=== PATIENT | female | born 1955 | race Caucasian/White ===

== ENCOUNTER 2017-02-18 07:15 | Day surgery (SDC) | payer OTHER ==
[~2017-02-18] VITALS: Ht 165.1 cm; Wt 82.5 kg
[~2017-02-18 07:15] MED LIST: OMEP20TA86 PO; Sodium Chloride LOK Flush 10 mL Syringe IV PRN; fentaNYL-PF 50 mCg/mL 2 mL Inj IVPUSH PRN
[2017-02-18 07:35] VITALS: BP 156/90; PULSE 67; RESP 18; O2SAT 99
[2017-02-18] MEDS: 0.9% Sodium Chloride 1,000 ML IV SCH ×2 (08:07→08:40)
[2017-02-18 08:46] VITALS: BP 137/84; PULSE 71; RESP 16; O2SAT 93
[2017-02-18 09:00] VITALS: BP 125/87; PULSE 77; RESP 16; O2SAT 94
[2017-02-18 09:10] VITALS: BP 136/84; PULSE 66; RESP 16; O2SAT 93
--- NOTE | 2017-02-18 09:52 | ENDO ---
[address] [address] ENDOSCOPY PROCEDURE PATIENT: LILLIAN WHALEN : 1955 MR#: [id number] ADMIT: 02/18/2017 JOB ID: [id number] DATE: 02/18/2017 PREOPERATIVE DIAGNOSIS(ES): 1. Dysphagia. 2. Colorectal cancer screening. POSTOPERATIVE DIAGNOSIS(ES): 1. Normal upper endoscopy. 2. Rectal polyp. 3. Proximal sigmoid colon polyp. 4. Distal sigmoid colon polyp. 5. Transverse colon polyp. 6. Diffuse diverticulosis. OPERATION: 1. Upper endoscopy with biopsy. 2. Colonoscopy into terminal ileum with four cold forceps polypectomies. SURGEON: Vitor Amador MD. INDICATIONS: A 61-year-old female who has solid food dysphagia. She has never had a workup for this and after discussing options with the patient, it was elected to proceed with an upper endoscopy. She has also never had a colonoscopy for colorectal cancer screening and it was elected to accomplish that at the same time. FINDINGS: Her GE junction was at 42 cm from the incisors. There was no evidence of a hiatal hernia. The distal esophageal mucosa was entirely normal. There was no evidence of a stricture, Schatzki ring or a tumor. Retroflexed views of the cardia revealed a normal Hill grade I flap valve. The fundus, body and antrum of the stomach were normal. The pylorus was normal. The duodenum through the second portion of the duodenum was normal. Biopsy of the antrum was obtained for H. pylori. She had a good prep. The scope was advanced into the terminal ileum. She had four small polyps that were identified, one in the transverse colon, one in the proximal sigmoid colon, one in the distal sigmoid colon and one in the rectum. All were small, the largest being in the range of 2-3 mm. All appeared benign. She also had diffuse diverticulosis extending into the proximal transverse colon. Other than the small distal rectal polyp, retroflexed views of the rectum were normal. DESCRIPTION OF PROCEDURE: The procedure and sedation plan was discussed with the patient and nursing staff and a procedural time-out was held. She did a lidocaine gargle. For both procedures, she received 9 mg of Versed and 175 mcg of fentanyl. The upper endoscopy was performed first with the GIF H 180 J video endoscope. This passed into the second portion of the duodenum. Forward and retroflexed views of the cardia were obtained. Biopsies of the antrum were obtained with results as stated above. The patient was repositioned. A digital rectal examination was performed and then the Olympus PCF H 180 AL video colonoscope was passed transanally, advanced into the terminal ileum, withdrawn over 11 minute 50 seconds. The four small polyps were biopsied with cold forceps with minimal bleeding with the results as stated above. There were no apparent complications. IMPRESSION: 1. No obvious explanation for dysphagia. 2. Four small colon polyps, histology pending. PLAN: Esophageal manometry and then return to my office for discussion.
--- NOTE | 2017-02-22 15:51 | PATH ---
SURGICAL PATHOLOGY Attending Physician:Joe Sarah CASE STATUS: Signed Out PATIENT NAME: LILLIAN WHALEN PID: [id number] : 1955 DATE COLLECTED:02/18/2017 15:50 SPECIMEN: 1: Colon, Biopsy 2: Colon, Biopsy 3: Colon, Biopsy 4: Rectum, Biopsy CLINICAL HISTORY: SCREENING/ COLON POLYPS 1. TRANSVERSE COLON POLYP 2. PROXIMAL SIGMOID POLYP 3. DISTAL SIGMOID POLYP 4. RECTAL POLYP FINAL DIAGNOSIS: 1.TRANSVERSE COLON POLYP: HYPERPLASTIC POLYP. 2.PROXIMAL SIGMOID POLYP: HYPERPLASTIC POLYP. 3.DISTAL SIGMOID POLYP: HYPERPLASTIC POLYP. 4.RECTAL POLYP: HYPERPLASTIC POLYP. ICD10 CODE K63.5 K62.1 GROSS DESCRIPTION: The specimen is received in four formalin filled containers labeled with the patient's name. 1). The specimen is sublabeled "transverse colon polyp" and consists of a 0.3 x 0.3 x 0.3 CM portion of tissue which is entirely submitted in cassette 1A. 2). The specimen is sublabeled "proximal sigmoid polyp" and consists of a 0.2 x 0.2 x 0.2 CM portion of tissue which is entirely submitted in cassette 2A. 3). The specimen is sublabeled "distal sigmoid polyp" and consists of a 0.4 x 0.3 x 0.2 CM portion of tissue which is entirely submitted in cassettes 3A. 4). The specimen is sublabeled "rectal polyp" and consists of 2 portions of tissue which aggregate to 0.3 x 0.3 x 0.2 CM. The specimen is entirely submitted in cassette 4A. 02/18/2017 DAC MICRO DESCRIPTION: See diagnosis. ICD-9 CODES: CPT CODES: 1: 95530 2: 63873 3: 98808 4: 54055 Electronically Signed Out Glenny Saeed MD [facility], [place] [address] Technical component performed at [facility], [address], [place], [address]
== END 2017-02-18 23:59 | disposition home or self-care (01) ==
LOC: END 07:15
PROVIDERS: ATTEND Surgery
DX: Z12.11 Encounter for screening for malignant neoplasm of colon (principal); K63.5 Polyp of colon; K62.1 Rectal polyp; R13.10 Dysphagia, unspecified; K21.9 Gastro-esophageal reflux disease without esophagitis; B27.00 Gammaherpesviral mononucleosis without complication; Z87.891 Personal history of nicotine dependence
CPT/HCPCS: 43239; 45380; 99153; G0500; J7030

== ENCOUNTER 2017-04-13 12:40 | Day surgery (SDC) | payer OTHER ==
[~2017-04-13 12:40] MED LIST changes: -Sodium Chloride LOK Flush 10 mL Syringe IV PRN; -fentaNYL-PF 50 mCg/mL 2 mL Inj IVPUSH PRN
[2017-04-13] MEDS ORDERED: Lidocaine Topical 2% 30 mL Jelly ONE (12:44)
== END 2017-04-13 23:59 | disposition home or self-care (01) ==
LOC: END 12:40
PROVIDERS: ATTEND Surgery
DX: K22.0 Achalasia of cardia (principal); K21.9 Gastro-esophageal reflux disease without esophagitis

== ENCOUNTER 2017-05-10 17:09 | Inpatient (IN) | payer OTHER ==
[~2017-05-10] VITALS: Ht 165.1 cm; Wt 65.3 kg
[2017-05-10 17:26] VITALS: BP 125/81; PULSE 71; RESP 16; O2SAT 100
[2017-05-10 17:30] VITALS: BP 128/99; PULSE 57; RESP 11; O2SAT 100
--- NOTE | 2017-05-10 17:53 | ED.REPORT ---
HPI-Abd Pain F 40 and Over Date of Service May 10, 2017 ED Provider: Mau Galeas MD Pt is a 61 y/o female w/ a hx of chronic dysphagia presenting to the ED due to an episode of severe epigastric pain which occurred about 1 hr prior to arrival. The patient has been experiencing chronic episodic nausea and vomiting for months after eating or drinking which she states has not been definitely diagnosed but her surgeon Dr. Parmar believes her symptoms are consistent with achalasia. She has lost 80 lbs over 6 months and has been lightheaded frequently due to this condition. She is scheduled to have esophageal and gastric surgery on 05/14 due to proposed achalasia with Dr. Parmar. Today she awoke from a nap at 16:30 and was walking through her house and experienced severe sharp, burning, non-radiating epigastric pain for 1-2 minutes and then syncopized for about 30-40 seconds. She has experienced epigastric pain in the past but nothing similar to today. At current time, her pain is only quite mild. She has been constipated for 1 week. She denies fever, chills, chest pain , lower extremity edema, SOB. She has no history of other medical problems and doesn't take any medications. Nursing Notes Stated Complaint: PAIN IN STOMACH Chief Complaint: Female Abdominal Pain Nursing Notes Reviewed: Yes ([facility], meds not reconciled) Allergies: Coded Allergies: No Known Allergies (Unverified , 05/10/17) No Active Prescriptions or Reported Meds General Time Seen by MD: 17:49 Chief Complaint Abdominal pain Hx Obtained From: Patient Arrived By: Walk-in Sudden in Onset?: No Onset Occurred: Just prior to arrival Symptom Duration: 1 - 15 minutes Progression since Onset: Rapidly improving Location: : Epigastric Quality: Painful Radiation: : Does not radiate Severity: Current: Mild Severity: Maximum: Severe Recent Healthcare: Recent doctor visit Past Medical History Past Medical History Chronic dysphagia with weight loss, nausea, and vomiting, unclear etiology Colon polyps Denies: Coronary artery disease, Diabetes mellitus, Hypertension Past Surgical History EGD and colonoscopy 01/2017 Smoking History Never Smoker Social History Drug Use: Denies drug use Other Social History: Good social support, Ambulatory Status Independent Review of Systems Constitutional: Denies: Chills, Fever Respiratory: Denies: Non-productive cough, Shortness of breath Cardiovascular: Denies: Chest pain, Dyspnea on exertion GI: Reports: Abdominal pain, Dysphagia, Nausea, Vomiting Complete sys rev & neg: except as marked. Neurologic: Reports: Change LOC, Lightheaded, Syncope, Denies: Focal weakness, Headache, Numbness Physical Exam Vital Signs Vital Signs (First) Date Time Temp Pulse Resp B/P Pulse Ox O2 Delivery O2 Flow Rate FiO2 05/10/17 17:26 36.9 71 16 125/81 100 Room Air Initial VS: Reviewed, Vital signs normal Head / Eyes: Atraumatic, Normocephalic, PERRL Neck: Supple, Full range of motion Skin: Warm, Dry, No cyanosis Neurologic: Alert, Oriented, Nonfocal Psychiatric: Mood/affect normal, Behavior normal, Normal thought content General/Constitutional: Awake, Alert, No acute distress, Cooperative, Not toxic appearing Distress / Hydration: Positive: Dehydration mild, Dehydration moderate Behavior: Positive: Anxious Appearance / Presentation: Positive: Cachectic Respiratory / Chest: Breath sounds NL, Breath sounds = bilat, No rales, No rhonchi, No wheezing, No retractions, No stridor Slightly short of breath Cardiovascular: Heart rate NL, Regular rhythm, Heart sounds NL, No gallop, No murmurs, No rubs, Cap refill not delayed, Peripheral circulation NL, Pulses = bilaterally Abdomen: Atraumatic, Soft, Non-tender, No guarding, No rebound, No distention, No palpable mass Back: Full range of motion, Painless range of motion ENT: Atraumatic, Airway patent Mouth: Positive: Mucous membranes dry Lower Extremity / Pelvis / MS: No swelling, No deformity, Neurologic intact, Vascular intact, No edema Interpretation & Diagnostics Lab Results Interpretation Result Diagram: 05/10/17182905/10/171829 Test 05/10/17 18:30 05/10/17 19:38 White Blood Count 8.4th/mm3 (3.8-10.1) Red Blood Count 5.00mil/mm3 (3.90-5.20) Hemoglobin 14.8g/dL (12.0-15.6) Hematocrit 42.4% (35.0-46.0) Mean Corpuscular Volume 84.8fL (81-100) Mean Corpuscular Hemoglobin 29.6pg (27.0-35.0) Mean Corpuscular Hemoglobin Concent 34.9% (32.0-37.0) Red Cell Distribution Width 14.1% (12.3-15.4) Platelet Count 213bil/L (150-400) Neutrophils (%) (Auto) 62.0% (40-74) Lymphocytes (%) (Auto) 28.4% (14-46) Monocytes (%) (Auto) 8.8% (4-12) Eosinophils (%) (Auto) 0.5% (0-5) Basophils (%) (Auto) 0.2% (0-3) D-Dimer 0.56mg/L FEU (<0.50) Sodium Level 143mEq/L (134-144) Potassium Level 2.9mEq/L (3.5-5.2) Chloride Level 96mEq/L (97-108) Carbon Dioxide Level 23mmol/L (18-29) Blood Urea Nitrogen 32mg/dL (8-27) Creatinine 1.30mg/dL (0.57-1.00) Estimat Glomerular Filtration Rate 59mL/min (>59) Glucose Level 115mg/dL (60-99) Calcium Level 10.8mg/dL (8.5-10.1) Total Bilirubin 1.3mg/dL (0.0-1.2) Aspartate Amino Transf (AST/SGOT) 52U/L (0-50) Alanine Aminotransferase (ALT/SGPT) 66U/L (0-32) Alkaline Phosphatase 43U/L (25-165) Troponin T < 0.010ug/L (0.0-0.011) Total Protein 8.1g/dL (6.4-8.4) Albumin 4.5g/dL (3.4-5.0) Lipase 45U/L (13-60) Lactic Acid Level 1.6mmol/L (0.4-2.0) Lab Results Interpretation: CBC normal CMP moderate hypokalemia, renal insufficiency-I do not have old labs available to me for comparison Pulmonary negative D-dimer age adjustment negative ECG Interpretation ECG Interpretation: Sinus rhythm rate 62 LVH with repolarization No prior EKG for comparison Time: 18:20 Interpreted by: ED physician X-Ray Chest Interpretation Chest Xray Interpretation: IMPRESSION: No acute pulmonary process. Dictated by: Niya Gregorio M.D. on 05/10/2017 at 19:49 Approved by: Niya Gregorio M.D. on 05/10/2017 at 19:50 View: Portable, 1 view Interpretation / Wet Read by: Interpret - Radiologist Re-Eval/Medical Decision Med Decision/Clinical Course This is a 61-year-old female who presents with a chief complaint of syncope, with concern for dehydration, nausea vomiting inability to take by mouth. Patient poor she has had no major medical problems, until recent months she developed increasing dysphagia-and a workup was demonstrated achalasia, for surgery as planned on Wednesday with Dr. Parmar. At 80 pounds in recent months, and continue to have difficulties even with liquids. Today she had a bout of epigastric pain, was standing and then collapsed for about 40 seconds and was briefly unresponsive. She denies chest discomfort, diaphoresis, pleuritic discomfort-she has no prior history of DVT or PE. He is concerned about being severely dehydrated. On exam she is cachectic and fatigue. She has dry mucous membranes. She is not in extremis. She is not tachycardic or hypotensive. She has no overt findings of heart failure. No murmurs are evident, and no clinical evidence of DVT is evident on physical exam. EKG is however notable for left ventricular hypertrophy, with no prior EKG available comparison-this is somewhat concerning given the absence of prior hypertension, or cardiac disease given the syncope. It certainly remains possible to syncope is just secondary to dehydration given his history as well. Her labs are notable for significant hypokalemia Source of Hx: Old records Re-Evaluation/Progress : Time of Eval: 20:46 Re-Evaluation/Progress Note: Pt rechecked. Informed pt of need for admission. Pt understands and agrees with plan for admission. All questions addressed. Consultation : Referral / Consult Name: Danii Jade DO Consulted With: Hospitalist Call Returned at: 20:46 Heavy Equipment Supervisor: Will see patient, Agrees with eval, Agrees with plan, Accepts admit Counseled Regarding: Diagnosis, Lab results, Need for admission Discharge & Departure Primary Impression: Syncope Syncope type: unspecified Qualified Code: R55 - Syncope and collapse Additional Impressions: Achalasia Dehydration Epigastric abdominal pain Hypokalemia LVH (left ventricular hypertrophy) Disposition: ADMITTED TO HOSPITAL Discharge Condition All VS Reviewed: Yes Condition: Stable Referrals: Krissy Harding (PCP) Susan Parmar MD Attestation Portions of this note were transcribed by Isael Kelly. I, Dr. Galeas, personally performed the history, physical exam and medical decision-making; I reviewed and confirmed the accuracy of the information in the transcribed note. Signed by Last Perdue, 05/10/17 - [id number] copies to: Krissy Harding; Susan Parmar MD, Matthew F MD May 10, 2017 17:53 ISAEL KELLY May 10, 2017 18:04
[2017-05-10] MEDS ORDERED: 0.9% Sodium Chloride 1,000 ML IV ONE ×2 (18:05)
[2017-05-10 18:37] LABS: BASOPHILS % (AUTO) 0.2 % (0-3); EOSINOPHILS % (AUTO) 0.5 % (0-5); MONOCYTES % (AUTO) 8.8 % (4-12); Mean Corpuscular Hemoglobin 29.6 pg (27.0-35.0); Mean Corpuscular Volume 84.8 fL (81-100); Platelet Count 213 bil/L (150-400)
[2017-05-10 19:00] LABS: TROPONIN T < 0.010 ug/L (0.0-0.011)
[2017-05-10] MEDS ORDERED: Promethazine Inj 25 MG in Dextrose 5%-Pha MIX 50 ML IV ONE (19:15)
[2017-05-10 19:29] LABS: Lipase 45 U/L (13-60)
[2017-05-10] MEDS ORDERED: Potassium Chloride Inj 20 MEQ in Dextrose 5% 250 ML IV ONE (19:40)
--- NOTE | 2017-05-10 19:52 | DRSVH ---
PROCEDURE: X-RAY CHEST ONE VIEW, PORTABLE ([id number]) INDICATIONS: syncope, SOB TECHNIQUE: One view of the chest was acquired. COMPARISON: None. FINDINGS: Surgical changes and devices: None. Lungs and pleura: No pleural effusions or pneumothorax. Lungs are clear. Mediastinum: Mediastinal contours appear normal. Heart size is normal. Bones and chest wall: No suspicious bony lesions. Overlying soft tissues appear unremarkable. IMPRESSION: No acute pulmonary process. Dictated by: Niya Gregorio M.D. on 05/10/2017 at 19:49 Approved by: Niya Gregorio M.D. on 05/10/2017 at 19:50
--- NOTE | 2017-05-10 21:02 | PCM.HPMED ---
Subjective Date of Service May 10, 2017 Primary Provider: Admitting Physician: Primary Care Physician: Krissy Harding Attending Physician: Admit Status: From the Emergency Department Chief Complaint: Abdominal pain and syncope History of Present Illness: Kim Pineda is a 61-year-old woman history of chronic dysphasia recently diagnosed by Dr. Parmar as achalasia who presents with severe epigastric pain and syncopal episode. The patient has been undergoing workup over the last 3-4 months for chronic nausea and vomiting that began back in July 2016. She weighed 225 pounds prior to developing this chronic nausea and vomiting and now currently weighs 144 pounds. She has undergone workup including EGD with biopsy , barium swallow, and esophageal manometry which all point to type II achalasia. Dr. Parmar plans to take the patient to surgery on 05/14 for laparoscopic Heller myotomy. The patient has been attempting to manage until this procedure takes place. She has been drinking and eating as able but notes that she vomits most of this up. Vomiting as much as 30 times a day. Today the patient states that around 1700 she had an episode of severe epigastric pain that lasted a few minutes. Epigastric pain did not radiate and was described as a sharp intense pain During this episode she subsequently felt lightheaded and began to let her self to the ground when she passed out. Her states that she fell to the ground and not sustain any significant injury to her head. She was unconscious and unresponsive for approximately 40 seconds. When she regained consciousness she was alert and oriented. Her then drove her to the ED to be evaluated. Currently she denies any ongoing epigastric pain or discomfort. She does know she has not had a bowel movement in over a week but has not had significant oral intake. She denies feeling constipated. She denies fever, chills, chest pain, lower extremity edema. She does note some shortness of breath and dizziness that has progressively worsened over the last 2 weeks. She has attributed this to her decreased oral intake due to the achalasia. On presentation to the ED vitals were temperature 36.9, pulse 71, respiratory rate 16, blood pressure 125/81, saturating 100% on room air. Pertinent labs included a potassium of 2.9, BUN and creatinine of 32 and 1.30, AST 52, ALT 66, alkaline phosphatase 43, lipase 45. Review of Systems: Comprehensive review of systems was conducted with the patient and found to be negative except as noted above in HPI. Allergies Coded Allergies: No Known Allergies (Unverified , 05/10/17) Home Medications None PMH Chronic dysphagia recently diagnosed as achalasia by Dr. 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 External ears without defect. Pupils equal, round, and reactive to light and accommodation. Anicteric sclerae, moist conjunctivae, and no lid lag. Oropharynx free of erythema and cobble stoning with dry mucosa and lips. Neck: Supple with full range of motion. No jugular venous distension. No bruits. No lymphadenopathy or thyromegaly. Cardiovascular: Regular rate and rhythm with no murmurs, rubs, or gallops appreciated Pulmonary: Clear to auscultation bilaterally with no crackles, wheezes, or rhonchi. Normal respiratory effort with no use of accessory muscles. Abdomen: Bowel tones present. Soft, nontender, nondistended. No hepatosplenomegaly or masses appreciated. Extremities: No clubbing, cyanosis, edema, or lymphadenopathy appreciated. Skin: Skin tenting present, decreased turgor, normal temperature; no rash, ulcers, or subcutaneous nodules appreciated. Neurological: Cranial nerves grossly intact. Normal muscle strength, tone, and bulk. Reflexes, coordination, and sensory function within normal limits. No known gait impairment. Psychiatric: Normal mood and affect. Alert and oriented to person, place, and time. Lab and Diagnostics Result Diagram: 05/10/17182905/10/171829 X-Rays, CTs and MRIs X-RAY CHEST ONE VIEW, PORTABLE ([id number]) IMPRESSION: No acute pulmonary process. Dictated by: Niya Gregorio M.D. on 05/10/2017 at 19:49 Approved by: Niya Gregorio M.D. on 05/10/2017 at 19:50 X-RAY BARIUM SWALLOW ESOPHAGUS ([id number]) IMPRESSION: Abnormal appearance of the distal esophagus with sequela of radiographic findings suggesting achalasia. Endoscopy is recommended. Dictated by: Sina Peters RRA Interpreted: Niya Gregorio MD on 04/29/2017 at 15: 20 Approved by: Niya Gregorio M.D. on 04/29/2017 at 18:52 12-lead ECG Sinus rhythm rate 62 LVH with repolarization No prior EKG for comparison Additional Diagnostics: ENDOSCOPY PROCEDURE DATE: 02/18/2017 PREOPERATIVE DIAGNOSIS(ES): 1. Dysphagia. 2. Colorectal cancer screening. POSTOPERATIVE DIAGNOSIS(ES): 1. Normal upper endoscopy. 2. Rectal polyp. 3. Proximal sigmoid colon polyp. 4. Distal sigmoid colon polyp. 5. Transverse colon polyp. 6. Diffuse diverticulosis. OPERATION: 1. Upper endoscopy with biopsy. 2. Colonoscopy into terminal ileum with four cold forceps polypectomies. IMPRESSION: 1. No obvious explanation for dysphagia. 2. Four small colon polyps, histology pending. PLAN: Esophageal manometry and then return to my office for discussion. Vitor Amador MD 02/18/17 0880 <Electronically signed by Vitor Amador MD> 02/20/17 1321 Assessment & Plan Kim Pineda is a 61-year-old woman history of chronic dysphasia recently diagnosed by Dr. Parmar as achalasia who presents with severe epigastric pain and syncopal episode. Syncope, present on admission, active. Etiology likely secondary to dehydration and poor oral intake. Although cannot rule out cardiac involvement as EKG showed some left ventricular hypertrophy with no prior EKG to compare to. - IV fluids received in the ED and continued at 150 mL per hour. - Orthostatic blood pressure pending. - Echocardiogram ordered for the morning. - Monitor on telemetry overnight. - Chest x-ray, CBC, and troponins negative for abnormalities. Acute kidney injury, present on admission, active. Etiology likely secondary to dehydration and poor oral intake. - Elevated BUN and creatinine on admission compared to labs drawn on 02/01/17 that showed a creatinine of 0.68 and BUN of 12. - IV fluids as above. - Urinalysis pending. - Repeat CMP in the morning. - If labs are not improved in the morning consider renal ultrasound. Hypokalemia, present on admission, active. - Potassium 2.9 on admission. - Placement started in the ED. - Recheck potassium in the morning. - EKG without changes associated with hypokalemia. Achalasia Type II, present on admission, active. - Heller myotomy scheduled for 05/[address] Parmar. - Dr. Parmar should be contacted in the morning so she is made aware of the patient's current situation. Elevated liver enzymes, present on admission, active. Unclear etiology and chronicity. Patient denies history of hepatitis, HIV, or IV drug use. May be secondary to achalasia and nine-month history of nausea and vomiting. - As they are only mildly elevated will repeat CMP in the morning after IV fluid hydration. - Further workup to be completed likely after Heller myotomy if values remain elevated. PRN Medications - Acetaminophen as needed for mild pain/fever/headache - Bowel regimen as needed - Antiemetic as needed Patient is admitted under observation status with expected length of stay less than 2 midnights due to severity of presenting symptoms, risk of adverse event, and complexity of treatment plan. Pain Evaluation: Adequate Pain Control GI Prophylaxis: Not indicated VTE Prophylaxis: Sub-Q Heparin (Unfractionated), SCDs Resuscitation Status: CPR: Attempt Resuscitation Attending Statement The patient was seen and examined together with house staff on 05/10/2017 and I agree with the history, exam and plan as outlined in the note above. ROSA HER DO May 10, 2017 21:02 Danii Jade DO May 11, 2017 05:46
[2017-05-10] MEDS: 0.9% Sodium Chloride 1,000 ML IV SCH (21:49)
[2017-05-10] MEDS ORDERED: Alum-Mag Hydrox-Simeth 30 mL Suspension PO PRN (21:50)
[2017-05-10] MEDS ORDERED: Ondansetron 2 mg/mL 2 mL Inj IVPUSH PRN (21:50)
[2017-05-10] MEDS ORDERED: Polyethylene Glycol (PEG) 17 Gm Powder PO PRN (21:50)
[2017-05-10 21:54] VITALS: BP 127/99; PULSE 59; RESP 19; O2SAT 98
[2017-05-10 22:00] VITALS: BP_SYST 122; BP_SYST 127; BP_DIAS 76; BP_DIAS 99; PULSE 52; PULSE 59; RESP 18; RESP 19; O2SAT 98; O2SAT 99
[2017-05-10 22:08] VITALS: PULSE 66
[2017-05-10 22:11] LABS: Magnesium 2.3 mg/dL (1.6-2.6)
[2017-05-10 22:16] LABS: APPEARANCE,URINE CLOUDY (CLEAR,HAZY); COLOR,URINE DARK YELLOW (YELLOW); OCCULT BLOOD,URINE NEGATIVE (NEGATIVE); PH,URINE 5.5 (5.0-8.0)
[2017-05-11] VITALS (8 sets, daily range): BP systolic 103–136; BP diastolic 58–76; PULSE 46–63; RESP 16–20; O2SAT 97–100
[2017-05-11] MEDS: Heparin 5,000 Unit/mL Inj SUBQ SCH ×3 (00:30→17:49)
--- NOTE | 2017-05-11 03:35 | NUR ---
Admission Pt arrived from ER to [facility] [id number] approz at 2200. Pt denies pain N/V. Admission assessment and screening completed. Belongings waiver signed. POC discussed and reviewed with pt and spouse. They verbalized understanding.
[2017-05-11 06:42] LABS: Mean Corpuscular Hemoglobin 28.8 pg (27.0-35.0); Mean Corpuscular Volume 87.1 fL (81-100)
[2017-05-11] MEDS ORDERED: Pantoprazole 20 mg ER24 Tablet PO SCH (07:30)
[2017-05-11] MEDS: 0.9% Sodium Chloride 1,000 ML IV SCH (10:25)
--- NOTE | 2017-05-11 11:31 | NUR ---
Social Work-multidisciplinary rounds: Per MD in morning rounds, pt likely to be here 1-2 days. Per RN notes, pt has been up in her room. SW to complete assessment today. DANIELLE Hurst
[2017-05-11] MEDS ORDERED: Potassium Chloride Inj 20 MEQ in Dextrose 5% 250 ML IV ONE (13:55)
[2017-05-11] MEDS: D5 0.45% NaCl + KCl 20 mEq/L 1,000 ML IV SCH (14:41)
[2017-05-11] MEDS ORDERED: Nitrofurantoin Monohyd-Macrocryst 100 mg Capsule PO SCH (15:30)
--- NOTE | 2017-05-11 15:59 | NUR ---
Social Work-attempted assessment: SW attempted to see pt today ,but RN in room. SW to follow up with pt tomorrow to complete assessment. SW will continue to follow. DANIELLE Hurst
--- NOTE | 2017-05-11 16:24 | DRSVH ---
PROCEDURE: US BILATERAL DUPLEX DOPPLER IMAGING OF THE CAROTIDS ([id number]) INDICATIONS: syncope TECHNIQUE: Color and pulse Doppler interrogation was performed of both carotid systems, with image documentation and velocity measurements. COMPARISON: None. FINDINGS: All stenosis calculations are based on NASCET criteria. Right side: Brachial blood pressure: 126/66 mm Hg. Common Carotid Artery(Distal) PSV: 123.40 cm/s Internal Carotid Artery PSV- Proximal: Not obtained Mid-lon.30 cm/s Distal: 99.40 cm/s EDV - Proximal: Not obtained Mid-lon.90 cm/s Distal: 30.20 cm/s External Carotid Artery(Proximal) PSV: 116.50 cm/s ICA/CCA PSV ratio: 0.81 Strong scale imaging description: Mild intimal thickening at the carotid bulb. Percent internal carotid artery stenosis: Less than 50% stenosis. Vertebral artery: Flow direction is antegrade. Left side: Brachial blood pressure: 124/68 mm Hg. Common Carotid Artery(Distal) PSV: 105.50 cm/s Internal Carotid Artery PSV - Proximal: 79 cm/s Mid-lon cm/s Distal: 90.30 cm/s, 106.10 cm/s EDV - Proximal: 13.60 cm/s Mid-lon.10 cm/s Distal: 20.80 cm/s, 12.30 cm/s External Carotid Artery(Proximal) PSV: 94.80 cm/s ICA/CCA PSV ratio: 1.01 Strong scale imaging description: Mild intimal thickening at the carotid bulb. Percent internal carotid artery stenosis: Less than 50% stenosis. Vertebral artery: Flow direction is antegrade. IMPRESSION: Less than 50% stenosis of the bilateral internal carotid arteries. Dictated by: Aleida Ramirez M.D. on 05/11/2017 at 16:21 Approved by: Aleida Ramirez M.D. on 05/11/2017 at 16:23
--- NOTE | 2017-05-11 16:26 | DRSVH ---
PROCEDURE: US ABDOMEN INDICATIONS: elevated LFT TECHNIQUE: Real-time scanning was performed of the abdominal and retroperitoneal organs, with image documentatio n. COMPARISON: None. FINDINGS: Liver length: 14.86 cm Gallbladder Wall Thickness: 1.70 mm CHD: 2 mm CBD: 6.10 mm Spleen length: 11.02 cm Right kidney length: 12.22 cm Left kidney length: 11.4 cm Aorta(Proximal): 2.14 cm Aorta(Mid): 1.95 cm Aorta(Distal): 1.70 cm RCIA: 1.01 cm LCIA: 8.50 mm Liver: The liver is 15 cm in length and demonstrates a coarse echotexture. Gallbladder: Echogenic, dependent sludge is present within the gallbladder fundus. No pericholecystic fluid or sonographic Lowe sign. Biliary ducts: Intrahepatic bile ducts are non-dilated. Extrahepatic bile duct caliber is normal. Normal is 6-7 mm or less in diameter, or 10 mm or less post-cholecystectomy. Pancreas: Visualized portions of the pancreas are sonographically normal. The the tail the pancreas is not well-visualized. Spleen: Spleen is normal in size and homogeneous in echotexture. Kidneys: Kidneys are normal in size and echotexture. No hydronephrosis or nephrolithiasis. No alverto d masses. Aorta: Visualized aorta is normal in caliber at less than 3 cm. Iliacs: Proximal common iliac arteries are normal in caliber at less than 2.5 cm. IVC: Intrahepatic inferior vena cava is patent. Miscellaneous: No free abdominal fluid. IMPRESSION: 1. Gallbladder sludge without findings to suggest acute cholecystitis or choledocholithiasis. 2. Probable hepatic steatosis although other sources of hepatocellular dysfunction could be considere d in the differential. Dictated by: Aleida Ramirez M.D. on 05/11/2017 at 16:23 Approved by: Aleida Ramirez M.D. on 05/11/2017 at 16:24
--- NOTE | 2017-05-11 17:18 | DRSVH ---
[facility] [address] [place] [address] Echocardiogram Report Name: LILLIAN WHALEN MStudy Date: 05/11/2017 Height: 65 in Hospital Exam Location: [facility] Weight: 147 lb Gender: Female BSA: 1.7 m2 : 1955 Age: 61 yrs BP: 113/71 mmHg Reason For Study: Syncope Ordering Physician: Performed By: Lupe Muhammad Interpretation Summary The ejection fraction is estimated to be 60-65%. The right ventricle is normal in size, thickness and function. There is no significant valvular heart disease. Procedure: A two-dimensional transthoracic echocardiogram with color flow and Doppler was performed. The study quality was technically adequate. There is no prior echocardiogram noted for this patient. The patient was in normal sinus rhythm during the exam. Left Ventricle: The left ventricle is normal in size, wall thickness, and systolic function without any focal wall motion abnormalities. The ejection fraction is estimated to be 60-65%. Assessment of diastolic parameters indicates normal left ventricular diastolic function and normal filling pressures. Right Ventricle: The right ventricle is normal in size, thickness and function. Atria: The left atrium is moderately dilated. Right atrial size is normal. The interatrial septum is intact with no evidence for an atrial septal defect. Mitral Valve: The mitral valve is normal. There is no mitral regurgitation noted. Aortic Valve: The aortic valve is trileaflet. The aortic valve opens well. No aortic regurgitation is present. Tricuspid Valve: The tricuspid valve is normal in structure and function. There is a trace or physiologic amount of tricuspid regurgitation. The right ventricular systolic pressure is estimated at 26 mmHg assuming a right atrial pressure of 3 mm Hg. Pulmonic Valve: The pulmonic valve is normal in structure and function. There is a trace or physiologic amount of pulmonic regurgitation. Great Vessels: The aortic root is normal size. The dimensions of the ascending aorta are normal. The IVC is dilated (diameter is greater than 2.1 cm) yet it collapses greater than 50% with a sniff. This suggests a right atrial pressure of 8 mm Hg. Pericardium/ Pleura There is no pericardial effusion. There is no pleural effusion. MMode/2D Measurements & Calculations LVIDd: 5.3 cm LA dimension: 3.6 cm RA long axis Ao root diam LVIDs: 3.0 cm FS: 43.2 % LA A2 area: 25.3 cm RA area Aortic Jxn: 2.2 cm IVSd: 0.88 cm LA A4 area: 23.5 cm asc Aorta Diam LVPWd: 0.88 cm LA length (vol) : 16.2 cm RA vol Ao Arch Diam (Prox LA vol: 84.5 ml : 47.5 ml Trans): 2.3 cm LA vol index RA : 27.4 mm/ RVDd major IVC diam: 2.4 cm : 5.4 cm LV jurado. diameter/BSA LV sys. diameter/BSA RVD1 (basal) RVD2 (mid): 2.8 cm (cm/m^2): 3.0 (cm/m^2): 1.7 Doppler Measurements & Calculations Ao V2 max MV E max juanjo MV E/A: 1.1 TR max juanjo : 227.6 cm/sec : 119.2 cm/sec Med Peak E' Juanjo : 238.3 cm/sec Ao max PG MV A max juanjo TR max PG : 20.7 mmHg : 104.4 cm/sec E/E' med: 18.6 : 22.7 mmHg Ao mean PG MV P1/2t: 72.5 msec Lat Peak E' Juanjo PA V2 max : 93.2 cm/sec LVOT Max Juanjo E/E' lat: 14.7 PA mean PG : 119.3 cm/sec E/e' average: 16.6 sev ratio Pulm A Revs Dur PA Accel Time : 0.20 sec MV dec time MV P1/2t max juanjo Ao V2 mean LV V1 max PG : 0.24 sec : 137.0 cm/sec MVA(P1/2t): 3.0 cm2 Ao V2 VTI: 50.9 cm LV V1 VTI : 26.1 cm PA V2 mean : 70.0 cm/sec Electronically signed by: Cb Delcid on Reading Physician:05/11/2017 05:17 PM
--- NOTE | 2017-05-11 18:23 | NUR ---
Vomiting Pt having repeated vomiting during shift. Amounts monitored for output. Emesis was undigested food, with minimal/no bile present, not very odorous. Attempted to premedicate for Nausea with IV Zofran. Pt did report that nausea was reduced but continued to vomit. Did not continue with administration of Zofran d/t Bradycardia. Pt reports increased nausea with some food types. Assisting nausea/vomiting by food choices.
--- NOTE | 2017-05-11 18:34 | NUR ---
HR Tele reported pt HR SBrady as low as 45 BPM. Pt was asymptomatic but vomiting. Denies any lightheadedness, confusion, or weakness. informed. Later in shift around 1515, Tele reported pt having a 2.5 sec pause in Heart rate, then HR returned to SR 60. informed and in to evaluate strip. Continuing to monitor.
[2017-05-11] MEDS ORDERED: Potassium Chloride 20 mEq/15 mL 15mL Oral Soln PO SCH (18:40)
[2017-05-11] MEDS ORDERED: Potassium Chloride Inj 30 MEQ in Dextrose 5% 500 ML IV ONE ×3 (18:40→23:00)
--- NOTE | 2017-05-11 19:55 | PCM.PNSURG ---
Subjective Visit Information: Reason for Visit Syncope, Hypokalemia, Dehydration Surgery/Surgery Date Post-Op Day # Date of Admission: May 10, 2017 at 21:30 Hospital Day # Subjective: 61yof with known achalasia admitted after a syncopal event with multiple laboratory abnormalities including hypokalemia, hypochloremia, mild elevation in LFTs. She has had many episodes of vomiting (she says 30/day) for quite some time due to achalasia. Workup thus far reveals <50% stenosis of carotids, biliary sludge without sign of cholecystitis, essentially normal echocardiogram. Objective Vital Sign- Last 8 Hours Date Time Temp Pulse Resp B/P Pulse Ox O2 Delivery O2 Flow Rate FiO2 05/11/17 17:00 36.8 54 18 119/76 98 Room Air 05/11/17 13:10 36.6 49 18 136/69 100 Room Air Intake and Output- Last 8 Hour 05/11/17 Cumulative From/Thru 07:00 05/10/17 17:26 - 05/11/17 06:08 Intake Total 75 ml 1075 ml Output Total 0 ml 0 ml Balance 75 ml 1075 ml Intake Oral 75 ml 75 ml IV Total 1000 ml Output Urine Total 0 ml 0 ml General: Alert, Oriented X3, Cooperative, No Acute Distress Abdomen: Soft, Non-tender, Non-distended Result Diagram: 05/11/17 0545 05/11/17 1801 Assessment & Plan Impression 61yof with achalasia scheduled for Heller myotomy with EGD on Monday 05/14. Problems: Plan -Her electrolyte abnormalities are consistent with dehydration secondary to dysphagia from achalasia. Agree with resuscitation and repletion. -Appreciate cardiopulmonary workup by the primary team. -I will plan on proceeding with surgery on Wednesday morning, whether she remains here as an inpatient or is discharged. There may be some benefit to her staying as an inpatient to prevent this episode from recurring on Wednesday night or prior to surgery, which could delay the operation if she has severly abnormal electrolytes and ultimately the surgical solution to the underlying problem. -She should follow up with me as an outpatient regarding biliary sludge in the setting of a mild increase in LFTs. 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 I do not plan to both under the same anesthetic on Wednesday. VTE Prophylaxis: Sub-Q Heparin (Unfractionated), SCDs Resuscitation Status: CPR: Attempt Resuscitation Susan Parmar MD May 11, 2017 19:55
[2017-05-11] MEDS: Famotidine Inj 20 MG in IV Premix 1 EACH IV SCH (20:48)
--- NOTE | 2017-05-11 22:27 | NUR ---
Care Report given and care transferred to Cristel Casarez RN.
--- NOTE | 2017-05-11 23:59 | PCM.PNMED ---
Subjective Date of Service May 11, 2017 Subjective Patient is alert and oriented. She states she had a large bowel movement last night at 8 PM after being constipated for a long time. She is taking by mouth intake but vomiting number of times. says this is her norm at home. She states that she was very active yesterday her to meet up with friends, got very thirsty and drank a lot of pop, and then rested some before experiencing the severe achalasia sensation, which came with pain sensation . Became syncopal for 40 seconds. She had some dizziness, lightheadedness and shakiness yesterday but states she feels fine today. Overnight her potassium levels did not really adjust in spite of repletion. Bradycardia in mid 40's reported over tele. Exam Vital Signs Vital Sign - Last Date Time Temp Pulse Resp B/P Pulse Ox O2 Delivery O2 Flow Rate FiO2 05/11/17 13:10 36.6 49 18 136/69 100 Room Air Intake and Output 05/10/17 05/10/17 05/11/17 Cumulative From/Thru 15:00 23:00 07:00 05/10/17 17:26 - 05/11/17 06:08 Intake Total 1000 ml 75 ml 1075 ml Output Total 0 ml 0 ml Balance 1000 ml 75 ml 1075 ml Intake Oral 75 ml 75 ml IV Total 1000 ml 1000 ml Output Urine Total 0 ml 0 ml Exam Gen.: No acute distress, laying in bed watching TV with HEENT: Normocephalic, atraumatic Heart: Bradycardic regular rhythm no S3-S4 murmurs lungs: Clear to auscultation no crackles or wheezes Abdomen soft nontender, flat, normal bowel sounds Extremities: Negative for edema good range of motion Psych negative for agitation and anxiety Neuro no focal deficits IVs and Medications IV Fluids She is currently on D5 half-normal saline with at 20 a.m. acute potassium running at 80 mL/h Medications Reviewed: Medications were reviewed in detail Medications Discontinued Pantoprazole, added famotidine IV 20 mg twice a day Lab and Diagnostics Result Diagram: 05/11/1754405/11/17544 X-Rays, CTs and MRIs X-RAY CHEST ONE VIEW, PORTABLE ([id number]) IMPRESSION: No acute pulmonary process. Dictated by: Niya Gregorio M.D. on 05/10/2017 at 19:49 Approved by: Niya Gregorio M.D. on 05/10/2017 at 19:50 X-RAY BARIUM SWALLOW ESOPHAGUS ([id number]) IMPRESSION: Abnormal appearance of the distal esophagus with sequela of radiographic findings suggesting achalasia. Endoscopy is recommended. Dictated by: Sina Peters RRA Interpreted: Niya Gregorio MD on 04/29/2017 at 15: 20 Approved by: Niya Gregorio M.D. on 04/29/2017 at 18:52 12-lead ECG Sinus rhythm rate 62 LVH with repolarization No prior EKG for comparison Additional Diagnostics ENDOSCOPY PROCEDURE DATE: 02/18/2017 PREOPERATIVE DIAGNOSIS(ES): 1. Dysphagia. 2. Colorectal cancer screening. POSTOPERATIVE DIAGNOSIS(ES): 1. Normal upper endoscopy. 2. Rectal polyp. 3. Proximal sigmoid colon polyp. 4. Distal sigmoid colon polyp. 5. Transverse colon polyp. 6. Diffuse diverticulosis. OPERATION: 1. Upper endoscopy with biopsy. 2. Colonoscopy into terminal ileum with four cold forceps polypectomies. IMPRESSION: 1. No obvious explanation for dysphagia. 2. Four small colon polyps, histology pending. PLAN: Esophageal manometry and then return to my office for discussion. Vitor Amador MD 02/18/17 6415 <Electronically signed by Vitor Amador MD> 02/20/17 1329 Assessment & Plan Kim Pineda is a 61-year-old woman history of chronic dysphasia recently diagnosed by Dr. Parmar as achalasia who presents with severe epigastric pain and syncopal episode. Syncope, present on admission, active. Etiology likely secondary to dehydration and poor oral intake. Although cannot rule out cardiac involvement as EKG showed some left ventricular hypertrophy with no prior EKG to compare to. - IV fluids changed to date for D5 half-normal saline with 20 and acute potassium running at 80 mL/h - Orthostatic blood pressure : Not done 05/11. Will f/u with staff - Echocardiogram, ultrasound carotids were ordered for the morning.: Carotid scan showed < 50% stenosis -- Echo showed "The ejection fraction is estimated to be 60-65%. The right ventricle is normal in size, thickness and function.There is no significant valvular heart disease.'-- essentially normal study - Monitor on telemetry overnight., Normal sinus rhythm, bradycardia this a.m. and 40s. Patient is completely asymptomatic - Chest x-ray, CBC, and troponins negative for abnormalities. --Bradycardia 05/11 a.m. echo is still pending, EKG is ordered: There have been EKG changes, discussed case with cardiology geospatial applications developer Dr. Phillips, who says that 2.5 sec pause is not of concern, it will have to be > 3 sec pause for one to be concerned. Acute kidney injury, present on admission, resolved Etiology likely secondary to dehydration and poor oral intake. - Elevated BUN and creatinine on admission compared to labs drawn on 02/01/17 that showed a creatinine of 0.68 and BUN of 12. - IV fluids as above. - UA showed some concern for infection, cultures are still pending due to poor growth, cont to follow Hypokalemia, present on admission, active. - Potassium 2.9-->2.8-->2.9 very slow to adjust - She was given a total of 50 meq IV potassium, 20 meq PO oral solution, plus the IVF w/potassium. F/U lab at 10 PM. --Night physician was given a signout. -- Consulted Dr. Clifford as she has been very refractory, who recommends continuing the repletion through the night with both IV, PO, f/u K, Mag in the AM. Agrees with IV fluids. We appreciate the recommendations. they will see the pt in the AM Achalasia Type II, present on admission, active. - Heller myotomy scheduled for 05/[address] Parmar. - Dr. Parmar should be contacted in the morning so she is made aware of the patient's current situation. -- Discussed case with Dr. Parmar, she will see the patient. She is requesting an ultrasound of the abdomen, this has been ordered and showed biliary sludge. She does not plan on cholecystectomy at this point. Elevated liver enzymes, present on admission, active. Unclear etiology and chronicity. Patient denies history of hepatitis, HIV, or IV drug use. May be secondary to achalasia and nine-month history of nausea and vomiting. - As they are only mildly elevated will repeat CMP in the morning after IV fluid hydration. - Ultrasound of abdomen is ordered per Dr. Parmar's request though liver function tests seen to be normal normalizing except for the ALT --No active plans for cholecystectomy per Dr. Parmar PRN Medications - Acetaminophen as needed for mild pain/fever/headache - Bowel regimen as needed - Antiemetic as needed Patient is admitted under observation status with expected length of stay less than 2 midnights due to severity of presenting symptoms, risk of adverse event, and complexity of treatment plan. GI Prophylaxis: Not indicated VTE Prophylaxis: Sub-Q Heparin (Unfractionated), SCDs Resuscitation Status: CPR: Attempt Resuscitation Time spent 25 minutes Cathy Bailey DO May 11, 2017 14:36
[2017-05-12] VITALS (7 sets, daily range): BP systolic 96–130; BP diastolic 58–75; PULSE 39–62; RESP 18–24; O2SAT 97–100
[2017-05-12] MEDS: Heparin 5,000 Unit/mL Inj SUBQ SCH ×3 (00:30→16:30)
[2017-05-12] MEDS: D5 0.45% NaCl + KCl 20 mEq/L 1,000 ML IV SCH ×2 (03:24→17:33)
--- NOTE | 2017-05-12 06:19 | NUR ---
Shift Note Assumed pt care at 2330, pt a/o able to make needs known,received K rider edgard, continues with IVF D5 0.45%NS with 20K, pending K check with am labs, pt on tele at 0525 HR down to 39 non sustained, reported by vehicle monitor technician, pt asymptomatic, no c/o pain/discomfort,call light in reach at all times.
[2017-05-12 07:37] LABS: Magnesium 1.9 mg/dL (1.6-2.6)
[2017-05-12] MEDS: Famotidine Inj 20 MG in IV Premix 1 EACH IV SCH ×2 (09:24→20:55)
--- NOTE | 2017-05-12 10:31 | NUR ---
HR Called just recd from tele re pts HR. several sec dip into 30s. pt checked, states to be asymptomatic. notified. Addendum: 05/12/17 at 1646 by MERNA RAMOS RN Cardio PA in to see pt. Reassured that most like vaso-vagal reaction d/t continuos vomiting and electrolyte deficiency. Pt states to understand need to stay another night.
--- NOTE | 2017-05-12 10:55 | NUR ---
Social Work: Initial Assessment Data: Pt is a 61 y/o female admitted for syncope, hypokalemia, dehydration. Pt's PCP is Dr Harding, pt's insurance is [employer]. EMR reviewed, readmit score is 0, low. UPSTAIRS MAID met with pt and spouse at bedside, role explained. Pt states she lives on [address] in a single story home with her where she uses no DME. Pt drives, has no hx of HH or SNF, no LTC or VA benefits, and is not a caregiver. Pt states she has been up and independent in the room and declines any needs at this time. No d/c planning needs identified at this time. UPSTAIRS MAID will continue to follow if needs arise. Assessment: Pt who is independent at baseline. Plan: Pt will d/c home via POV with spouse when medically stable. No d/c planning needs identified at this time. UPSTAIRS MAID will continue to follow if needs arise. DANIELLE Thurston Addendum: 05/12/17 at 1057 by PARMJIT RING Amended: Links added.
--- NOTE | 2017-05-12 11:07 | NUR ---
Social Work-multidisciplinary rounds: Per MD, pt may discharge home later today. No discharge needs identified. DANIELLE Hurst
--- NOTE | 2017-05-12 14:00 | CONS ---
[address] [address] CONSULTATION REPORT PATIENT: LILLIAN WHALEN : 1955 MR#: [id number] ADMIT: 05/10/2017 JOB ID: [id number] DATE OF SERVICE: 05/12/2017 RENAL CONSULTATION: HISTORY: The patient is a rather unfortunate 61-year-old white female, who was admitted to [facility] for dehydration, acute kidney injury, and hypokalemia secondary to recurrent vomiting from achalasia. Renal consultation is being sought for further management of her persistent hypokalemia. She has about a 10 month history of recurrent nausea and vomiting. This has led to an 80 pound weight loss and evidence of malnutrition. She has been seen by Dr. Parmar from surgery who is evaluating her for achalasia type 2. She states that she vomits multiple times throughout the day but denies any diarrhea. She denies a history of any prior renal problems and there is no history of any prior hematuria, proteinuria, recurrent urinary tract infections, renolithiasis, frequent use of nonsteroidal anti-inflammatories, [id number] medications or diuretics. There is no history of any prior diabetes or hypertension. At time of admission, she had evidence of some mild acute kidney injury, which improved with IV hydration. Also, at time of admission, her potassium was 2.9, her calcium was 10.8, her phosphorus is 2.0 and her magnesium was 2.3. She also had some mild elevation in her liver function studies. She was treated with appropriate IV hydration and has had aggressive replacement of potassium. However, her potassium has been quite slow to respond. The hospitalist team has appropriately ordered follow up lab including ongoing magnesium. However, this has not required further replacement. Her potassium finally this morning is close to normal at 3.4. Unfortunately, she still is unable to tolerate any type of oral supplementation or able to hold anything down. She is scheduled to have a myotomy of the distal esophageal sphincter later this week. PAST MEDICAL HISTORY: Is significant for achalasia as detailed above. PAST SURGICAL HISTORY: Is remarkable for EGD and colonoscopy. ALLERGIES: He is not allergic to any food or any medication. SOCIAL HISTORY: She takes ethanol on rare occasion and has a remote history of tobacco use. MEDICATIONS: At time of admission did not show any evidence that she had been taking proton pump inhibitors. However, she has been taking these since she has been in the hospital but these have been discontinued. FAMILY HISTORY: Noncontributory. REVIEW OF SYSTEMS: As detailed above. Otherwise is unremarkable. PHYSICAL EXAMINATION: Revealed a pale, mild to moderately chronically ill-appearing 63-year-old, white female, who was alert and oriented x3, in no distress at time my evaluation. Her blood pressure is 114/73 with a pulse rate of 51. HEENT examination is remarkable for pale sclerae and some mild bitemporal wasting. Neck is supple without adenopathy, thyromegaly or jugular venous distention. Lungs were clear to auscultation. Heart was regular and rhythmical with a soft systolic murmur. Abdomen is soft without any tenderness, rebound, guarding, masses or hepatosplenomegaly. Extremities do not show any evidence of any clubbing, cyanosis, or edema. Skin turgor is diminished. There was no evidence of any rashes. LABORATORY EXAMINATION: This morning her hemoglobin is 11.6, hematocrit 35.2, white count, platelet count and red cell indices are unremarkable. Her sodium today is 142, potassium 3.4, chloride of 108, bicarbonate 23, BUN and creatinine were 14 and 0.77. Liver function study is unremarkable. Her albumin is low at 3.2. Urinalysis shows a specific gravity of 1.025, pH was 5.5, test for protein and ketones were positive as was nitrates. Her RBCs were 0-2. White cells were 11-50 with many epithelial cells and oxalic acid crystals were noted. She also had many bacteria and diffuse hyaline casts. Her urine culture showed greater than higher 1000 gram-negative rods. However, this has not been speciated. IMPRESSION: 1. Chronic vomiting, dehydration secondary to achalasia. 2. Hypokalemia secondary to number one. 3. Metabolic acidosis. 4. Sinus bradycardia. RECOMMENDATION: Until she can tolerate oral solids and liquids, we need to continue her on IV fluids. Hopefully the myotomy may be of assistance. I am also concerned about her persistent bradycardia. I reviewed her EKG and would recommend consideration of a Cardiology consult to further evaluate this. Once again, I would like to thank you for allowing me to participate in the care of this most pleasant but unfortunate patient. I will be following her closely with you.
--- NOTE | 2017-05-12 14:42 | PCM.ANEPRE ---
Anesthesia Pre-Op Review Additional Comments 61 year old female for Heller Myotomy to treat Acholasia. She was admitted for syncope and will remain inpatient until surgery. Syncope likely secondary to severe n/v and hypokalemia. Echocardiogram normal LV function. IV hydration with potassium to improve dehydrations and hypokalemia - ongoing. OK to proceed with surgery as planned pending evaluation by anesthesiologist on DOS. Chart Reviewed by: Mau Castellon MD May 12, 2017 14:42
--- NOTE | 2017-05-12 16:13 | CONS ---
[address] [address] CARDIOLOGY INPATIENT CONSULTATION REPORT PATIENT: LILLIAN WHALEN : 1955 MR#: [id number] ADMIT: 05/10/2017 JOB ID: [id number] DATE OF SERVICE: 05/12/2017 REASON FOR CONSULTATION: Bradycardia and syncopal episode. HISTORY OF PRESENT ILLNESS: This is a very pleasant 61-year-old lady with history of chronic dysphagia and achalasia who was admitted to [facility] on May 10, 2017 after a syncopal episode. Because of her achalasia, the patient has been having problems with eating and drinking and she has been having frequent episodes of vomiting and regurgitation, especially the last couple months, and especially the last two weeks or so. The patient tells me that she basically cannot keep down any fluids or any meal, although she tries every time to eat and drink to make sure that at least some amount of it will get in her system, but she always ends up with vomiting and regurgitation and basically she vomits and regurgitates about 30 times a day or so. She especially recently is getting tired and feels dehydrated. On the day of admission in the afternoon she had 2 or 3 cans of Coke, which she vomited, and then she fell asleep. When she woke up she felt unstable, lightheaded, and she had a sharp pain in her epigastric area. She walked around a little bit to see if she would get better and the she suddenly felt not well, a little lightheaded, and suddenly passed out. She kind of buckled in her knees and fell on the floor. Her was next to her and he tells me that she was unconscious for about 30 seconds or so. When she regained consciousness, she did not have pain in her epigastric area anymore and she was doing fine, to the point that she did not want to go to the ER, but then they called her primary care doctor and she was advised to go to the ER, and she came to [facility]. She has been having periodic slight pain in her epigastric area on and off but she denies any chest discomfort with any physical activity. She does not have any history of coronary artery disease. No history of hypertension or hypercholesterolemia. She has been pretty healthy until one year ago, when she started having dysphagia; she eventually was diagnosed with achalasia. She lost 80 pounds in six months. She has not been taking any medications on a daily basis. She was prescribed at some point omeprazole which she could not take because she vomits everything and she cannot retain anything and she stopped taking even that medication. She denies history of any palpitations, history of any other syncopal episodes, except the one she had before this admission. She does not have symptoms of nocturnal pulmonary congestion. Per ER records on admission she was hemodynamically stable with blood pressure 125/81 mmHg, pulse 71 per minute, and she was afebrile and with normal saturation 100 percent on room air. Also on admission on labs it showed that she was not anemic, but she was hypokalemic with potassium 2.9, and she had hypochloremia at 96, all of this consistent with her achalasia mediated frequent vomiting/regurgitation. Her creatinine also was elevated to 1.3, with BUN 32, all of this likely fom dehydrated. The patient was hydrated and potassium was repleted, but she is still a little hypokalemic. On EKG on admission she was in sinus rhythm with heart rate 62, with ST-T abnormalities, with diffuse T-wave inversions which were likely from hypokalemia. REVIEW OF SYSTEMS: A 12-point of review of systems is negative except the ones mentioned in the HPI. HOME MEDICATIONS: None. PAST MEDICAL HISTORY: Chronic dysphagia, recently diagnosed with achalasia. SURGICAL HISTORY: EGD and colonoscopy in January 2017. FAMILY HISTORY: Denies family history of coronary artery disease. SOCIAL HISTORY: She is a former smoker. Quit smoking in 1993. Never smoked after that. Uses alcohol socially. Denies recreational drug use. PHYSICAL EXAMINATION: Vital Signs: Temperature 36.5 Celsius, pulse 56 beats per minute, respiratory rate 18 per minute, blood pressure 127/60 mmHg, pulse oximetry 100% on room air. General: No acute distress. Lying comfortably in the bed. Speaking full sentences. Pleasant, compliant. HEENT: Head atraumatic, sclerae anicteric. Mucous membranes a bit on the dry side. Neck: Supple. No thyromegaly. Respiratory: Normal breathing sounds bilaterally. No crackles. No wheezing. Cardiac: Regular rate and rhythm. No murmur appreciated. No rub appreciated. S1, S2 normal. JVP is not elevated. Abdomen: Nontender with palpation. Soft. Extremities: No lower extremity edema. Skin: Warm and dry. No rash. Neurologic: Alert and oriented x3. No gross abnormalities. LABORATORY DATA: Labs from May 12, 2017: Sodium 142, potassium 3.4, chloride 108, carbon dioxide 23, BUN 14, creatinine 0.77, glucose 99, calcium 9, phosphorus 3, magnesium 1.9. Total bilirubin 0.8, AST 37, ALT 45, alkaline phosphatase 32, total protein 5.3, albumin 3.2. From May 11, 2017, she had normal TFTs with TSH 1.34 and free T4 1.25. She had a negative troponin on admission. White blood cells 7.2, red blood cells 4.03, hemoglobin 11.6, hematocrit 35.1, platelet 151. Recently she had an echo done on May 11, 2017 which showed that she has normal left ventricular size and function, with ejection fraction 60% to 65%. Right ventricle is normal size, thickness, and function. There is no significant valvular heart disease. She had a right ventricular systolic pressure of 26 mm with normal central venous pressures of 3 mmHg. On telemetry the patient currently has been in sinus rhythm with a heart rate in 40s, 50s to 60s beats per minute, during the night in 40s bpm. Today in the morning around 5 a.m. she was bradycardic at about 39 beats per minute. She tells me that she actually she drank some fluids before that and then vomited as usual, so her bradycardia likely was vagal in origin. Also, yesterday in the afternoon she had a short episode of just mild tachycardia up to 102, which was followed by a sinus pause of 2.48 seconds. The patient tells me that around that time she was eating and drinking, and then vomited again, so again EKG changes likely were related to that. On EKG, on admission she was in sinus rhythm with diffuse T-wave inversions which improved after her potassium was repleted, although she still is mildly hypokalemic. ASSESSMENT: This is a very pleasant, 61-year-old lady with no previous documented cardiac history Basically she is pretty healthy lady until she developed dysphagia one year ago and recently was diagnosed with achalasia. Because of achalasia, she has been having a lot of episodes of vomiting and a hard time keeping food and fluids down, and feeling dehydrated and tired. She was admitted because of a syncopal episode and has been periodically bradycardic. On admission was hypokalemic and was repleted but still remains slightly hypokalemic. # Syncopal episode. The patient's bradycardia and syncopal episode I do not believe is related to cardiac problems. All of this could be vagal mediated because of her frequent vomiting and regurgitation because of severe achalasia. She had EKG changes on admission, which improved later on, she had diffuse T- wave inversions which improved after potassium repletion. I guess likely all of this was secondary to hypokalemia. Her hypokalemia and hypochloremia are likely secondary to dehydration from her severe achalasia and vomiting from that. She had an echo done recently which showed that she has a normal cardiac function with normal LVEF and no significant valvular pathology. She has normal central venous pressures. From a cardiac standpoint she can proceed with her surgery, which is planned this Wednesday and will be done by Dr. Susan Parmar. We do recommend her to stay at hospital to make sure that she does not develop any other syncopal episodes because she will be prone to bradycardia and syncopal episode because of vagal effect from vomiting and also can develop electrolyte disblance from vomiting. The epigastric pain that she had, we believe that it is not cardiac and again related to achalasia. She has not been having any angina. We recommend her to stay in the hospital until surgery, which is this Wednesday. This will be an opportunity to hydrate her and keep her electrolyte balance in better shape. In this way, she will be better prepped for surgery. Otherwise, we do not have any other recommendations for her from a cardiac standpoint. # sinus bradycardia - likely vagal mediated I discussed this case and with the on-call early education teacher, Dr. Rutledge, who agreed with this assessment and plan. CELESTE
[2017-05-12] MEDS ORDERED: 0.9% NaCl + KCl 20 mEq/L 1,000 ML IV SCH (17:25)
[2017-05-12 18:36] LABS: Magnesium 1.9 mg/dL (1.6-2.6)
[2017-05-12] MEDS ORDERED: Potassium Chloride Inj 20 MEQ in Dextrose 5% 250 ML IV ONE (18:45)
[2017-05-12] MEDS: 0.9% NaCl + KCl 20 mEq/L 1,000 ML IV SCH (18:46)
--- NOTE | 2017-05-12 20:44 | PCM.PNSURG ---
Subjective Visit Information: Reason for Visit Syncope, Hypokalemia, Dehydration Surgery/Surgery Date Post-Op Day # Date of Admission: May 10, 2017 at 21:30 Hospital Day # Subjective: Stable, still c/o vomiting. K rising with repletion. Cardiology evaluation reveals no cardiac cause for syncope. Objective Vital Sign- Last 8 Hours Date Time Temp Pulse Resp B/P Pulse Ox O2 Delivery O2 Flow Rate FiO2 05/12/17 18:18 36.7 48 18 130/75 100 Room Air 05/12/17 13:40 36.5 56 18 127/60 100 Room Air Intake and Output- Last 8 Hour 05/12/17 Cumulative From/Thru 07:00 05/10/17 17:26 - 05/12/17 05:09 Intake Total 350 ml 3485 ml Output Total 400 ml 400 ml Balance -50 ml 3085 ml Intake Oral 350 ml 425 ml IV Total 3060 ml Output Urine Total 400 ml 400 ml # Bowel Movements 0 0 General: Alert, Oriented X3, Cooperative, No Acute Distress Result Diagram: 05/11/17 0545 05/12/17 1810 Assessment & Plan Impression 61yof with achalasia Problems: Plan Heller myotomy Wednesday Clear liquid diet NPO at midnight night Appreciate management of syncopal episode and electrolytes by the hospitalist team. VTE Prophylaxis: Sub-Q Heparin (Unfractionated), SCDs Resuscitation Status: CPR: Attempt Resuscitation Susan Parmar MD May 12, 2017 20:44
[2017-05-13] VITALS (8 sets, daily range): BP systolic 111–136; BP diastolic 64–81; PULSE 48–61; RESP 16–18; O2SAT 96–100
--- NOTE | 2017-05-13 00:27 | PCM.PNMED ---
Subjective Date of Service May 12, 2017 Subjective Patient is seen and examined. She is wanting to go home. Dr. Parmar initially felt pt could return back for the surgery, her scans are negative but she remains bradycardic on telemetry. This a.m. telemonitoring showed sinus bradycardia with first-degree block. Patient is willing to wait and hear what the elementary school director and surgeon will have to say regarding waiting till her surgery is completed prior to discharging home.No other concerns Exam Vital Signs Vital Sign - Last Date Time Temp Pulse Resp B/P Pulse Ox O2 Delivery O2 Flow Rate FiO2 05/12/17 09:44 36.6 51 20 114/73 100 Room Air Intake and Output 05/11/17 05/11/17 05/12/17 Cumulative From/Thru 15:00 23:00 07:00 05/10/17 17:26 - 05/12/17 05:09 Intake Total 868 ml 1192 ml 350 ml 3485 ml Output Total 400 ml 400 ml Balance 868 ml 1192 ml -50 ml 3085 ml Intake Oral 350 ml 425 ml IV Total 868 ml 1192 ml 3060 ml Output Urine Total 400 ml 400 ml # Bowel Movements 0 0 Exam Gen.: No acute distress sitting up in chair HEENT: Normocephalic, atraumatic Heart: Bradycardia no S3-S4 murmurs Abdomen: Flat and nondistended Extremities good range of motion Neuro no focal deficits Psychiatric negative for anxiety IVs and Medications IV Fluids D5 half-normal saline with 20 of acute potassium running at 80 mL/h Medications Reviewed: Medications were reviewed in detail Lab and Diagnostics Result Diagram: 05/11/17 0545 05/12/17 0630 X-Rays, CTs and MRIs X-RAY CHEST ONE VIEW, PORTABLE ([id number]) IMPRESSION: No acute pulmonary process. Dictated by: Niya Gregorio M.D. on 05/10/2017 at 19:49 Approved by: Niya Gregorio M.D. on 05/10/2017 at 19:50 X-RAY BARIUM SWALLOW ESOPHAGUS ([id number]) IMPRESSION: Abnormal appearance of the distal esophagus with sequela of radiographic findings suggesting achalasia. Endoscopy is recommended. Dictated by: Sina Peters Leida Interpreted: Niya Gregorio MD on 04/29/2017 at 15: 20 Approved by: Niya Gregorio M.D. on 04/29/2017 at 18:52 12-lead ECG Sinus rhythm rate 62 LVH with repolarization No prior EKG for comparison Additional Diagnostics ENDOSCOPY PROCEDURE DATE: 02/18/2017 PREOPERATIVE DIAGNOSIS(ES): 1. Dysphagia. 2. Colorectal cancer screening. POSTOPERATIVE DIAGNOSIS(ES): 1. Normal upper endoscopy. 2. Rectal polyp. 3. Proximal sigmoid colon polyp. 4. Distal sigmoid colon polyp. 5. Transverse colon polyp. 6. Diffuse diverticulosis. OPERATION: 1. Upper endoscopy with biopsy. 2. Colonoscopy into terminal ileum with four cold forceps polypectomies. IMPRESSION: 1. No obvious explanation for dysphagia. 2. Four small colon polyps, histology pending. PLAN: Esophageal manometry and then return to my office for discussion. Vitor Amador MD 02/18/17 1952 <Electronically signed by Vitor Amador MD> 02/20/17 6026 Assessment & Plan Kim Pineda is a 61-year-old woman history of chronic dysphasia recently diagnosed by Dr. Parmar as achalasia who presents with severe epigastric pain and syncopal episode. Syncope secondaryt o vagal response, present on admission, active. Etiology likely secondary to dehydration and poor oral intake. Although cannot rule out cardiac involvement as EKG showed some left ventricular hypertrophy with no prior EKG to compare to. - IV fluids changed to date for D5 half-normal saline with 20 and acute potassium running at 80 mL/h - Orthostatic blood pressure : Not done 05/11. Will f/u with staff - Echocardiogram, ultrasound carotids were ordered for the morning.: Carotid scan showed < 50% stenosis -- Echo showed "The ejection fraction is estimated to be 60-65%. The right ventricle is normal in size, thickness and function.There is no significant valvular heart disease.'-- essentially normal study - Monitor on telemetry overnight., Normal sinus rhythm, bradycardia this a.m. and 40s. Patient is completely asymptomatic - Chest x-ray, CBC, and troponins negative for abnormalities. --Bradycardia 05/11 a.m. echo is still pending, EKG is ordered: There have been EKG changes, discussed case with cardiology data conversion analyst Dr. Phillips, who says that 2.5 sec pause is not of concern, it will have to be > 3 sec pause for one to be concerned. -- Pt remains bradycardic, EKG does show improvement with improved K -- Cardiology has seen the pt, adjusted IV fluids. They feels syncope was due to vasovagal response Asymptomatic bradycardia due to vasovagal response, POA active -- Discussed case with Dr. Phillips 05/1998, was touch base with him again prior to discharge and patient -- No overnight sinus pauses but she did have first-degree block sinus bradycardia this a.m. -- EKG ordered, 05/11 had significant repolarization changes, but improved EKG on 05/12 -- Cardiology has seen the pt on 05/12, cleared her for OR, they feel pt is displaying vagal response (vomiting), which is causing her to have bradycardia. Acute kidney injury, present on admission, resolved Etiology likely secondary to dehydration and poor oral intake. - Elevated BUN and creatinine on admission compared to labs drawn on 02/01/17 that showed a creatinine of 0.68 and BUN of 12. - IV fluids as above. - UA showed some concern for infection, cultures are growing ecoli, no reason to treat asymptomatic bacteriuria in this 61F Hypokalemia, present on admission, improving. - Potassium 2.9-->2.8-->2.9 very slow to adjust - She was given a total of 50 meq IV potassium, 20 meq PO oral solution, plus the IVF w/potassium. F/U lab at 10 PM. --Night physician was given a signout. -- Consulted Dr. Clifford as she has been very refractory, who recommends continuing the repletion through the night with both IV, PO, f/u K, Mag in the AM. Agrees with IV fluids. We appreciate the recommendations. they will see the pt in the AM -- She has corrected to 3.4 this a.m. after receiving 20 meq of oral solution overnight. K flash 10 meq on 05/12., magnesium is normal -- CArdiology also recommended to pt she should stay in the hospital with close monitoring of her lytes prior to her surgery Achalasia Type II, present on admission, active. - Heller myotomy scheduled for 05/[address] Parmar. - Dr. Parmar should be contacted in the morning so she is made aware of the patient's current situation. -- Discussed case with Dr. Parmar, she will see the patient. She is requesting an ultrasound of the abdomen, this has been ordered and showed biliary sludge. She does not plan on cholecystectomy at this point. -- From Dr. Parmar's recommendations it appears that she she currently plans to take patient to the OR and 14th. -- Discussed case with Dr. Parmar, who discussed with Anesth and decided to keep pt until surgery. Elevated liver enzymes, present on admission, active. Unclear etiology and chronicity. Patient denies history of hepatitis, HIV, or IV drug use. May be secondary to achalasia and nine-month history of nausea and vomiting. - As they are only mildly elevated will repeat CMP in the morning after IV fluid hydration. - Ultrasound of abdomen is ordered per Dr. Parmar's request though liver function tests seen to be normal normalizing except for the ALT --No active plans for cholecystectomy per Dr. Parmar PRN Medications - Acetaminophen as needed for mild pain/fever/headache - Bowel regimen as needed - Antiemetic as needed Patient is admitted under observation status with expected length of stay less than 2 midnights due to severity of presenting symptoms, risk of adverse event, and complexity of treatment plan. GI Prophylaxis: Not indicated VTE Prophylaxis: Sub-Q Heparin (Unfractionated), SCDs Resuscitation Status: CPR: Attempt Resuscitation Time spent 25 min Cathy Bailey DO May 12, 2017 11:19
[2017-05-13] MEDS: Heparin 5,000 Unit/mL Inj SUBQ SCH ×4 (00:30→21:20)
--- NOTE | 2017-05-13 04:40 | NUR ---
Tele/Potassium/heparin Pt has had 40 Meq K IV , labs pending, on room air , A&O x3 , using call light appropriately. refused sub q heparin. Tele , Sinus Charan , in the 40's
[2017-05-13] MEDS: 0.9% NaCl + KCl 20 mEq/L 1,000 ML IV SCH ×2 (04:45→15:56)
[2017-05-13 07:34] LABS: Magnesium 1.7 mg/dL (1.6-2.6); Phosphorus 2.8 mg/dL (2.5-4.9)
[2017-05-13] MEDS: Famotidine Inj 20 MG in IV Premix 1 EACH IV SCH ×2 (08:24→20:26)
--- NOTE | 2017-05-13 11:03 | NUR ---
Social Work: Multidisciplinary Rounds Pt discussed in rounds. Pt from home with spouse. Pt scheduled for surgery on Wednesday, likely d/c on Wednesday. RECRUITER SPECIALIST will follow up post surgery for any possible d/c planning needs. Currently no d/c planning needs anticipated. DANIELLE Thurston
--- NOTE | 2017-05-13 18:00 | NUR ---
Heparin/ambulation Pt refused subq heparin today and yesterday states she would rather walk. Ambulated around the unit 3x this AM and 5x at 1800.
[2017-05-13 19:39] LABS: Magnesium 1.7 mg/dL (1.6-2.6)
--- NOTE | 2017-05-13 23:53 | PCM.PNMED ---
Subjective Date of Service May 13, 2017 Subjective Patient is seen and examined. Her potassium levels have been better than ever today. Patient is scheduled to go to the OR tomorrow, she had no reported AV blocks overnight on telemetry, K levels have been improving. No other concerns Exam Vital Signs Vital Sign - Last Date Time Temp Pulse Resp B/P Pulse Ox O2 Delivery O2 Flow Rate FiO2 05/13/17 20:33 36.5 48 18 136/74 96 Room Air Intake and Output 05/12/17 05/12/17 05/13/17 Cumulative From/Thru 15:00 23:00 07:00 05/10/17 17:26 - 05/13/17 05:26 Intake Total 1295 ml 4780 ml Output Total 400 ml Balance 1295 ml 4380 ml Intake Oral 425 ml IV Total 1295 ml 4355 ml Output Urine Total 400 ml # Bowel Movements 0 Exam Gen.: No acute distress sitting up in chair HEENT: Normocephalic, atraumatic Heart: Bradycardia no S3-S4 murmurs Abdomen: Flat and nondistended Extremities good range of motion Neuro no focal deficits Psychiatric negative for anxiety IVs and Medications IV Fluids NSS with 20 meq K 40 cc/hr Medications Reviewed: Medications were reviewed in detail Lab and Diagnostics Laboratory Tests Test 05/13/17 06:32 05/13/17 17:55 05/13/17 19:05 Sodium Level 144mEq/L (134-144) Potassium Level 3.8mEq/L (3.5-5.2) 3.5mEq/L (3.5-5.2) Chloride Level 110mEq/L (97-108) Carbon Dioxide Level 20mmol/L (18-29) Blood Urea Nitrogen 9mg/dL (8-27) Creatinine 0.66mg/dL (0.57-1.00) Estimat Glomerular Filtration Rate 130mL/min (>59) Glucose Level 87mg/dL (60-99) Calcium Level 9.0mg/dL (8.5-10.1) Phosphorus Level 2.8mg/dL (2.5-4.9) Magnesium Level 1.7mg/dL (1.6-2.6) 1.7mg/dL (1.6-2.6) Urine Random Potassium 53.0mEq/L Microbiology 05/10/17 Urine Culture - Final, Complete Escherichia Coli Mixed Urogenital Sarah Result Diagram: 05/11/17 0545 05/13/17 1905 X-Rays, CTs and MRIs X-RAY CHEST ONE VIEW, PORTABLE ([id number]) IMPRESSION: No acute pulmonary process. Dictated by: Niya Gregorio M.D. on 05/10/2017 at 19:49 Approved by: Niya Gregorio M.D. on 05/10/2017 at 19:50 X-RAY BARIUM SWALLOW ESOPHAGUS ([id number]) IMPRESSION: Abnormal appearance of the distal esophagus with sequela of radiographic findings suggesting achalasia. Endoscopy is recommended. Dictated by: Sina Peters RRA Interpreted: Niya Gregorio MD on 04/29/2017 at 15: 20 Approved by: Niya Gregorio M.D. on 04/29/2017 at 18:52 12-lead ECG Sinus rhythm rate 62 LVH with repolarization No prior EKG for comparison Additional Diagnostics ENDOSCOPY PROCEDURE DATE: 02/18/2017 PREOPERATIVE DIAGNOSIS(ES): 1. Dysphagia. 2. Colorectal cancer screening. POSTOPERATIVE DIAGNOSIS(ES): 1. Normal upper endoscopy. 2. Rectal polyp. 3. Proximal sigmoid colon polyp. 4. Distal sigmoid colon polyp. 5. Transverse colon polyp. 6. Diffuse diverticulosis. OPERATION: 1. Upper endoscopy with biopsy. 2. Colonoscopy into terminal ileum with four cold forceps polypectomies. IMPRESSION: 1. No obvious explanation for dysphagia. 2. Four small colon polyps, histology pending. PLAN: Esophageal manometry and then return to my office for discussion. Vitor Amador MD 02/18/17 [id number] <Electronically signed by Vitor Amador MD> 02/20/17 1321 Assessment & Plan Kim Pineda is a 61-year-old woman history of chronic dysphasia recently diagnosed by Dr. Parmar as achalasia who presents with severe epigastric pain and syncopal episode. Syncope secondary to vagal response, present on admission, active. Etiology likely secondary to dehydration and poor oral intake. Although cannot rule out cardiac involvement as EKG showed some left ventricular hypertrophy with no prior EKG to compare to. - IV fluids NSS with 20 meq at 40 cc/hr - Orthostatic blood pressure : Not done 05/11. Will f/u with staff - Echocardiogram, ultrasound carotids were ordered for the morning.: Carotid scan showed < 50% stenosis --Echo showed "The ejection fraction is estimated to be 60-65%. The right ventricle is normal in size, thickness and function.There is no significant valvular heart disease.'-- essentially normal study - Monitor on telemetry overnight., Normal sinus rhythm, bradycardia this a.m. and 40s. Patient is completely asymptomatic - Chest x-ray, CBC, and troponins negative for abnormalities. --Bradycardia 05/11 a.m. echo is still pending, EKG is ordered: There have been EKG changes, discussed case with cardiology monorail hooker Dr. La Phillips, who says that 2.5 sec pause is not of concern, it will have to be > 3 sec pause for one to be concerned. -- Pt remains bradycardic, EKG does show improvement with improved K levels -- Cardiology has seen the pt, adjusted IV fluids. They feels syncope was due to vasovagal response -- She has had no syncopal event since coming to the hospital Asymptomatic bradycardia due to vasovagal response, POA active -- Discussed case with Dr. Phillips 05/1998, was touch base with him again prior to discharge and patient -- No overnight sinus pauses but she did have first-degree block sinus bradycardia this a.m. -- EKG ordered, 05/11 had significant repolarization changes, but improved EKG on 05/12 -- Cardiology has seen the pt on 05/12, cleared her for OR, they feel pt is displaying vagal response (vomiting), which is causing her to have bradycardia. -- Stable. She has maintained pending a rate of 50's on an average Acute kidney injury, present on admission, resolved Etiology likely secondary to dehydration and poor oral intake. - Elevated BUN and creatinine on admission compared to labs drawn on 02/01/17 that showed a creatinine of 0.68 and BUN of 12. - IV fluids as above. - UA showed some concern for infection, cultures are growing ecoli, no reason to treat asymptomatic bacteriuria in this 61F Hypokalemia, present on admission, improving. - Potassium very slow to adjust - 05/11 She was given a total of 50 meq IV potassium, 20 meq PO oral solution, plus the IVF w/potassium. F/U lab at 10 PM. -- Consulted Dr. Alba on 05/11, as she has been very refractory, who recommends continuing the repletion through the night with both IV, PO, f/u K, Mag in the AM. Agrees with IV fluids. We appreciate the recommendations. -- 05/12 She has corrected to 3.4 7 a.m. after receiving 20 meq of oral solution overnight. K flash 10 meq on 05/12., magnesium is normal -- Cardiology also recommended to pt she should stay in the hospital with close monitoring of her lytes prior to her surgery -- Surgery also recommends that patient stays in the hospital until surgery to avoid further alterations in electrolytes/cardiac rythm and to ensure that she could have a surgery as scheduled -- We will check electrolytes daily and repeat as needed Achalasia Type II, present on admission, active. - Heller myotomy scheduled for 05/[address] Parmar. - Dr. Parmar should be contacted in the morning so she is made aware of the patient's current situation. -- Discussed case with Dr. Parmar, she will see the patient. She is requesting an ultrasound of the abdomen, this has been ordered and showed biliary sludge. She does not plan on cholecystectomy at this point. -- From Dr. Parmar's recommendations it appears that she she currently plans to take patient to the OR and . -- Discussed case with Dr. Parmar, who discussed with Anesth and decided to keep pt until surgery. Elevated liver enzymes, present on admission, active. Unclear etiology and chronicity. Patient denies history of hepatitis, HIV, or IV drug use. May be secondary to achalasia and nine-month history of nausea and vomiting. - As they are only mildly elevated will repeat CMP in the morning after IV fluid hydration. - Ultrasound of abdomen is ordered per Dr. Parmar's request though liver function tests seen to be normal normalizing except for the ALT --No active plans for cholecystectomy per Dr. Parmar PRN Medications - Acetaminophen as needed for mild pain/fever/headache - Bowel regimen as needed - Antiemetic as needed Patient is admitted under observation status with expected length of stay less than 2 midnights due to severity of presenting symptoms, risk of adverse event, and complexity of treatment plan. GI Prophylaxis: Not indicated VTE Prophylaxis: Sub-Q Heparin (Unfractionated), SCDs VTE Mechanical Devices: Intermittant Pneumatic CD Resuscitation Status: CPR: Attempt Resuscitation Time spent 25 min Cathy Bailey DO May 13, 2017 20:50
[2017-05-14] VITALS (16 sets, daily range): BP systolic 122–158; BP diastolic 70–82; PULSE 46–81; RESP 14–20; O2SAT 96–100
[2017-05-14] MEDS: 0.9% NaCl + KCl 20 mEq/L 1,000 ML IV SCH (03:37)
--- NOTE | 2017-05-14 03:54 | NUR ---
HR Tele SB in the 40s-50s; asymptomatic; pt stated that this is her normal HR due to vagal response from vomiting. Pt hasn't had any PO this shift. IVF infusing. NPO since midnight for EGD and procedure @7AM. denies pain or discomfort. Slept most of the night. SBA to the bathroom d/t IV pole. hourly rounding done.
[2017-05-14] MEDS ORDERED: CeFAZolin Inj 2 GM in IV Premix 1 EACH IV ONE (06:26)
--- NOTE | 2017-05-14 07:08 | NUR ---
Off unit->OR Pt taken off unit by OVERAGE SHORTAGE AND DAMAGE CLERK at 0702 via stretcher. Pt denied pain. IV-SL. Tele notified. Family accompanied pt. Addendum: 05/14/17 at 1528 by MERNA RAMOS RN Report given to ALLEN Cortez on [facility].
[2017-05-14] MEDS ORDERED: Phenylephrine 10,000 mCg/mL Inj IVPUSH PRN (07:25)
[2017-05-14] MEDS ORDERED: fentaNYL-PF 50 mCg/mL 2 mL Inj IVPUSH PRN (07:25)
[2017-05-14] MEDS ORDERED: Dexamethasone 4 mg/mL Inj IVPUSH PRN (07:25)
[2017-05-14] MEDS ORDERED: MetoCLOpramide 5 mg/mL 2 mL Inj IVPUSH PRN ×2 (07:25→12:10)
[2017-05-14] MEDS ORDERED: EPHEDrine Sulfate 50 mg/mL Inj IVPUSH PRN (07:25)
[2017-05-14] MEDS ORDERED: Ondansetron 2 mg/mL 2 mL Inj IVPUSH PRN ×2 (07:25→12:10)
[2017-05-14] MEDS ORDERED: HYDROmorphone 1 mg/mL Inj IVPUSH PRN (07:25)
[2017-05-14] MEDS ORDERED: Lactated Ringer's 500 ML IV PRN (07:25)
--- NOTE | 2017-05-14 07:25 | PCM.HPANE ---
Patient Data Surgeon Admitting Provider:Danii Jade DO Attending Provider:Cathy Bailey DO Primary Care Physician:Krissy Harding Other Provider: Reason for Visit Syncope, Hypokalemia, Dehydration Ht/WT & BMI Height (Feet): 5 Height (Inches): 5.00 Weight (Kilograms): 65.320 Body Mass Index 23.99 Allergies Coded Allergies: No Known Allergies (Unverified , 05/10/17) Past Anesthesia History Anesthesia History: Denies:: Abnormal Airway, Anesthesia Reactions (no prior surgery), Difficult Intubation, Fam Anesthesia Reaction, Fam Malignant Hypertherm, Malignant Hyperthermia Diabetes History Hx Diabetes?: No MRSA MRSA: No Medications Hypertension Medication: No Home Meds Incl Beta Mark: No Discontinued Reported Medications Omeprazole 20 Mg Tablet.dr20 Mg PO BID Ref 0 02/17/17 History History of ENT Problems?: Yes HEENT History: Positive for:: Dysphagia (achalasia current admission problem- no difficulty swallowing) Denies:: Abnormal Airway Cataracts Difficult Intubation Glaucoma Hearing Problem Denture Type: None Teeth Condition: Within Normal Limits Hx of Heart Problems?: No Cardiovascular History: Positive for:: Chest Pain (recent inpt ) Denies:: AICD Abdominal Aortic Aneurism Atrial Fibrillation Edema Heart Murmur Hypertension Irregular Heartbeat Pacemaker Peripheral Vascular Rheumatic Fever Hx of Respiratory Problem?: No Respiratory History: Denies:: COPD Emphysema Hemoptysis Oxygen Administration Pneumonia Tuberculosis Use of C-PAP Machine Use of Inhalers / NEBS Hx Neurologic Problems?: No Neurological History: Denies:: CVA Dementia Headaches Multiple Sclerosis Parkinson's Disease Seizures Hx of GI Problems?: Yes Hx of Problems?: No Genitourinary History: Denies:: Kidney Stones Urinary Tract Infection Other Pertinent History: Achalasia Female Hx: Denies:: Currently (post menopausal) Problems with Breasts? Skin History: Denies:: History Skin Disorders? Pressure Ulcers Hx Musculoskeletal Problems?: No Musculoskeletal History: Denies:: Degenerative Joint Fibromyalgia Joint Replacement Osteoarthritis Rheumatoid Arthritis Systemic Lupus Hx of Psycho/Social Problems?: No Psycho Social History: Denies:: Anxiety Bipolar Disorder Hx Depression Suicide Attempt Hx Surgeries?: No (none) Hx Any Other Health Problems?: No Other History: Denies:: Cancer Thyroid Disease History Blood Transfusions: Positive for:: Accept Blood Products? 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 Hx Alcohol Use: NoHx Substance Use: No Smoking Status: Former Smoker Never Smoker Have You Smoked inLast 12 mo: No Stop/Bang Treated for Sleep Apnea?: No Do You Have a CPAP Machine?: No S-Snoring: Do You Snore Loudly: No T-Tired: feel tired, fatigued: No O-Obsered: Observed not breath: No P-Blood Pressure: treated: No B- Body Mass Index > 35 kg/m2: No A- Age over 50: Yes N- Neck Large Circumference: No G- Gender Male: No ALLI Total Score: 1 ALLI Risk Assessment: Low Risk, <3 Yes Risk Assessment Category Category 1A: Patient has history of documented sleep apnea, and HAS NOT received any narcotic, sedative or anesthesia administration during this stay. Category 1B: Patient has history of documented sleep apnea, and HAS received any narcotic , sedative or anesthesia administration during this stay Category 2: Patient has SUSPECTED Obstructive Sleep Apnea, and HAS received any narcotic , sedative or anesthesia administration during this stay. Category 3: Patient has SUSPECTED Obstructive Sleep Apnea and HAS NOT received narcotic, sedative or anesthesia administration during this stay. Category 4: Outpatient in Procedural Areas with known sleep apnea or who screen positive for High Risk via the STOP/BANG questionnaire. Exam Exam Vital Signs Vital Signs Date Time Temp Pulse Resp B/P Pulse Ox O2 Delivery O2 Flow Rate FiO2 05/14/17 05:36 36.6 46 18 129/82 97 Room Air 05/14/17 03:48 47 05/14/17 01:06 36.8 56 18 122/70 97 Room Air General Appearance: Alert, Oriented X3, Cooperative, No Acute Distress HEENT/AIRWAY: MP 2 Lungs: Clear to Auscultation, Normal Air Movement Heart: Exam Unremarkable, Regular Rate/Rhythm, No Murmurs/Rubs/Gallops Meds/Labs/Diagnostics Labs Test 05/10/17 18:30 05/10/17 19:38 05/10/17 21:53 05/11/17 05:45 Neutrophils (%) (Auto) 62.0% (40-74) Lymphocytes (%) (Auto) 28.4% (14-46) Monocytes (%) (Auto) 8.8% (4-12) Eosinophils (%) (Auto) 0.5% (0-5) Basophils (%) (Auto) 0.2% (0-3) D-Dimer 0.56mg/L FEU (<0.50) Troponin T < 0.010ug/L (0.0-0.011) Lipase 45U/L (13-60) Lactic Acid Level 1.6mmol/L (0.4-2.0) Urine Color Dark yellow (YELLOW) Urine Appearance Cloudy (CLEAR,HAZY) Urine pH 5.5 (5.0-8.0) Urine Specific [place] 1.025 (1.003-1.035) Urine Protein 30mg/dL (NEG,TRACE) Urine Glucose (UA) Negativemg/dL (NEGATIVE) Urine Ketones 40mg/dL (NEGATIVE) Urine Occult Blood Negative (NEGATIVE) Urine Nitrite Positive (NEGATIVE) Urine Bilirubin Negative (NEGATIVE) Urine Urobilinogen 1.0mg/dL (NORMAL) Urine Leukocyte Esterase Trace (NEGATIVE) Urine RBC 0-2/hpf (0-2) Urine WBC 11-50/hpf (0-5) Urine Epithelial Cells Many/hpf (NONE-MOD) Urine Crystals Oxalic acid crystals (NONE Urine Bacteria Many/hpf (NONE-FEW) Urine Hyaline Casts >20/lpf (NONE) Urine Granular Casts None seen (NONE SEEN) Urine Waxy Casts None seen (NONE SEEN) Urine Red Blood Cell Casts None seen (NONE SEEN) Urine White Blood Cell Casts None seen (NONE SEEN) Urine Mucus Present (None Seen) Urine Trichomonas None seen (NONE SEEN) Urine Yeast None (NONE SEEN) Urinalysis Comment None Urine Culture Reflexed Indicated White Blood Count 7.2th/mm3 (3.8-10.1) Red Blood Count 4.03mil/mm3 (3.90-5.20) Hemoglobin 11.6g/dL (12.0-15.6) Hematocrit 35.1% (35.0-46.0) Mean Corpuscular Volume 87.1fL (81-100) Mean Corpuscular Hemoglobin 28.8pg (27.0-35.0) Mean Corpuscular Hemoglobin Concent 33.0% (32.0-37.0) Red Cell Distribution Width 14.2% (12.3-15.4) Platelet Count 151bil/L (150-400) Thyroid Stimulating Hormone (TSH) 1.340uIU/mL (0.450-4.500) Free Thyroxine 1.25ng/dL (0.82-1.77) Test 05/12/17 06:30 05/13/17 06:32 05/13/17 17:55 05/14/17 06:32 Total Bilirubin 0.8mg/dL (0.0-1.2) Aspartate Amino Transf (AST/SGOT) 37U/L (0-50) Alanine Aminotransferase (ALT/SGPT) 45U/L (0-32) Alkaline Phosphatase 32U/L (25-165) Total Protein 5.3g/dL (6.4-8.4) Albumin 3.2g/dL (3.4-5.0) Phosphorus Level 2.8mg/dL (2.5-4.9) Urine Random Potassium 53.0mEq/L Plan Impression Patient chart reviewed, patient interviewed and anesthestic plan with risks, benefits, and alternatives discussed, and informed consent obtained. ASA Physical Status: ASA2 Mod Systemic Disease Anesthetic Plan: GA Bene/Risks/Altern/Consents: Yes HP Complete Prior to Induction: Yes Lucas Sim MD May 14, 2017 07:25
[2017-05-14] MEDS: Lactated Ringer's 1,000 ML IV SCH ×2 (07:30→11:45)
[2017-05-14 07:39] LABS: Magnesium 1.7 mg/dL (1.6-2.6)
--- NOTE | 2017-05-14 07:40 | PCM.PNSURG ---
Subjective Visit Information: Reason for Visit Syncope, Hypokalemia, Dehydration Surgery/Surgery Date Post-Op Day # Date of Admission: May 10, 2017 at 21:30 Hospital Day # Subjective: Stable overnight. Fearful of surgery this morning. Electrolytes normal. Objective Vital Sign- Last 8 Hours Date Time Temp Pulse Resp B/P Pulse Ox O2 Delivery O2 Flow Rate FiO2 05/14/17 05:36 36.6 46 18 129/82 97 Room Air 05/14/17 03:48 47 05/14/17 01:06 36.8 56 18 122/70 97 Room Air Intake and Output- Last 8 Hour 05/14/17 Cumulative From/Thru 07:00 05/10/17 17:26 - 05/14/17 05:41 Intake Total 1083 ml 8265 ml Output Total 900 ml Balance 1083 ml 7365 ml Intake Oral 1775 ml IV Total 1083 ml 6490 ml Output Urine Total 900 ml # Voids 1 # Bowel Movements 1 General: Alert, Oriented X3, Cooperative, Mild Distress Abdomen: Soft Result Diagram: 05/11/17 0545 05/13/17 1905 Assessment & Plan Impression 61yof with achalasia who was admitted with dehydration. Problems: Plan Laparoscopic heller myotomy with EGD today as scheduled. VTE Prophylaxis: Sub-Q Heparin (Unfractionated), SCDs Resuscitation Status: CPR: Attempt Resuscitation Susan Parmar MD May 14, 2017 07:40
[2017-05-14] MEDS: Famotidine Inj 20 MG in IV Premix 1 EACH IV SCH ×2 (08:30→20:55)
[2017-05-14] MEDS: Heparin 5,000 Unit/mL Inj SUBQ SCH ×2 (08:30→16:22)
[2017-05-14] MEDS ORDERED: Lidocaine 1%-Epi 1:100,000 20 mL Inj INFILTRATE ONE (08:50)
[2017-05-14] MEDS ORDERED: ProchlorPERazine 5 mg/mL 2 mL Inj IVPUSH PRN (12:10)
[2017-05-14] MEDS ORDERED: Acetaminophen 32 mg/mL 5 mL Liquid PO SCH (12:10)
--- NOTE | 2017-05-14 12:17 | PCM.SURGOP ---
Surgical Operative Report Date of Service: May 14, 2017 Pre Operative Diagnosis Type II achalasia Post Operative Diagnosis Type II achalasia Procedure: 1. Laparoscopic extended Heller myotomy with Toupet fundoplication 2. Upper endoscopy Surgeon and Dealer Relationship Manager: Surgeon: Susan Parmar M.D. Assistants: Thompson Landaverde MD R3; Moe Lyon PA-C; Darion Foy MS3 Dealer Relationship Manager was required for dissection and retraction Indication for Procedure This is a 61-year-old woman who presented with dysphagia, regurgitation, and vomiting, and underwent thorough workup including upper GI fluoroscopy which demonstrated a bird's beak abnormality in the distal esophagus; esophageal manometry which was diagnostic for type II achalasia; an upper endoscopy. She experienced significant weight loss, greater than 80 pounds. She was scheduled electively for Heller myotomy, and 3 days before surgery, became dehydrated and was admitted and resuscitated prior to the operation. Findings: 1. The myotomy was extended to 6 cm on the esophagus and 3 cm onto the stomach. 2. 270 posterior fundoplication. 3. A leak test was performed with the endoscope at the completion of the myotomy, and there was no leak. Procedure Details The patient was brought to the operating room and placed in supine position. General endotracheal anesthesia was smoothly induced. A warming blanket and SCDs were placed. The patient was repositioned into low lithotomy with the left arm tucked. Antibiotics were infused. The operative field was prepped and draped in a sterile fashion. A pause was performed to confirm the correct patient, procedure, and site. The abdomen was accessed using a Veress needle in the left upper quadrant after controlling the fascia and was insufflated. An 11 mm Optiview port was inserted and intraperitoneal insufflation began. A 5 mm port was then placed in the mid abdomen just to the left of midline. The 5 mm port was placed in the mid abdomen laterally on the left. A 5 mm liver retractor was placed. A final trocar was placed in the right upper quadrant, 5 mm in size. The stomach was identified and the phrenogastric ligament was taken down sharply. The short gastrics were then taken down using LigaSure device. Dissection proceeded at the hiatus starting on the left. The gastrohepatic ligament was then divided up to the right lefty and the right sided dissection was completed with care taken to preserve the entire lefty and posterior vagus. Once the esophagus was fully dissected circumferentially and the vagi had been preserved, the small hiatal hernia could be reduced. A [place] drain was then placed around the esophagus at the gastroesophageal junction for retraction to facilitate a more proximal esophageal dissection, until a total of 7 cm of the esophagus was visualized, 5 cm of which was intra-abdominal. The anterior vagus nerve was then identified and the overlying adipose near it was retracted such that the gastroesophageal junction fat pad could be dissected off of the esophagus. It was then completely removed with complete vagal preservation. Once the hiatal dissection was complete, an upper endoscope was inserted into the stomach. I began the myotomy 1 cm distal to the gastroesophageal junction and progressed proximally to complete a 6 cm esophageal myotomy of both longitudinal and circular muscle and a 3 cm extended myotomy on the gastric side. There were no complications during the myotomy portion. The two edges of the esophageal muscle were clearly by 2-3 cm at the completion of the myotomy. The endoscope was then slowly removed. Air was insufflated at the location of the myotomy while the mucosa was irrigated, in order to look for air leak. There is no sign of air leak. Attention was turned to the to Toupet fundoplication. A marking stitch was placed on the posterior fundus, 3 cm distal to the gastroesophageal junction and 2 cm posterior to the greater curvature. This was brought around posteriorly to align the geometry of the Toupet fundoplication. The first stitch was placed in the fundus, to the right-sided aspect of the esophageal myotomy, and into the right lefty. A second stitch was placed in the right fundus and to the posterior aspect of the right lefty. Two additional stitches were then placed from the right side of the fundoplication to the right side of the myotomy. Attention was then turned to the left side of the fundoplication. The appropriate portion of fundus to create the wrap was fashioned to size such that there was no redundant fundus. The first stitch was placed between the stomach, esophagus, left-sided esophageal myotomy, and left lefty. Two additional stitches were then placed from the left side of the fundoplication to the left side of the esophageal myotomy. A final stitch was placed from the left posterior lefty to the posterior fundoplication. Once the procedure was complete, the ports were removed under direct vision and the abdomen was desufflated. 0.5% Marcaine with epinephrine was infused at all port sites. Skin was closed with 4-0 Monocryl. Sterile dressings were placed. The patient was awakened from general anesthesia and taken to the postoperative care unit in good condition. Complications There were no periprocedural complications identified. Surgical Specimen Removed: Yes Specimen sent to Pathology: No Surgical Specimen description: GE junction fat pad Anesthetic Plan: GA Grafts, Implants: None Output, Estimated Blood Loss: 10 (ml) Blood Administration during rodríguez: No Susan Parmar MD May 14, 2017 12:17
[2017-05-14] MEDS ORDERED: Propofol 10,000 mCg/mL 20 mL Inj ONE (12:29)
[2017-05-14] MEDS ORDERED: Ondansetron 2 mg/mL 2 mL Inj ONE (12:29)
[2017-05-14] MEDS ORDERED: fentaNYL-PF 50 mCg/mL 2 mL Inj ONE (12:29)
[2017-05-14] MEDS ORDERED: Ketamine 10 mg/mL 20 mL Inj ONE (12:29)
[2017-05-14] MEDS ORDERED: Rocuronium 10 mg/mL 5 mL Inj ONE (12:29)
[2017-05-14] MEDS ORDERED: Dexamethasone 4 mg/mL Inj ONE (12:29)
[2017-05-14 13:04] LABS: Mean Corpuscular Hemoglobin 29.1 pg (27.0-35.0); Mean Corpuscular Volume 90.5 fL (81-100)
--- NOTE | 2017-05-14 13:10 | PCM.ANEP1 ---
Post Anesthesia PACU Phase 1 Assessment Vital Signs Vital Signs Date Time Temp Pulse Resp B/P Pulse Ox O2 Delivery O2 Flow Rate FiO2 05/14/17 12:55 70 17 140/72 96 Room Air 05/14/17 12:50 69 17 147/78 97 Room Air 05/14/17 12:45 75 19 149/75 96 Room Air 05/14/17 12:40 71 20 135/70 96 Room Air 05/14/17 12:35 36.8 72 14 143/74 96 Room Air 05/14/17 12:30 78 19 151/75 98 Room Air 05/14/17 12:25 78 20 149/73 100 Simple Mask 8 05/14/17 12:20 81 18 141/72 100 Simple Mask 8 05/14/17 12:15 37.1 78 19 152/75 100 Simple Mask 8 05/14/17 08:00 69 05/14/17 05:36 36.6 46 18 129/82 97 Room Air Anesthetic Administered: GA Level of Alertness: Awake, talking Pain: No Nausea or Vomiting: No CV Function & Hydration Stable: Yes Airway Device: Oralpharangeal Airway Oxygen Delivery: Simple Mask Lungs: Clear to Auscultation, Normal Air Movement Dermatome Level: Full Sensation PACU Phase 2 Assessment Complications: No Follow up Care: No Patient Instructions Provided: N/A Lucas Sim MD May 14, 2017 13:10
[2017-05-14] MEDS: Dextrose 5% Lactated Ringer's 1,000 ML IV SCH (13:46)
--- NOTE | 2017-05-14 14:02 | NUR ---
PostOp Pt arrived to [facility] unit, 1028, from PACU at 1320; arrived via gurney. Pt able to scoot self over with continual cueing. Alert and answering appropriately but forgetful, often repeating herself. Stating pain to abd and shoulder, c/o throat being sore and stating SOB, sats WNL - on RA. Tele replaced - tech aware. Belongings brought down with pt. Family at bedside. IV patent and infusing. Call to pharmacy re: need for liquid Roxicodone and liquid Tylenol - stated they will send this up. Call light in reach. Family and patient made aware of plan for tomorrow morning of upper GI barium swallow. SCDs on and running. Care continues.
[2017-05-14] MEDS ORDERED: Acetaminophen 32.5 mg/mL 20 mL Liquid PO PRN (14:07)
[2017-05-14] MEDS: oxyCODONE 1 mg/mL 5 mL Liquid PO SCH ×3 (16:24→21:00)
[2017-05-14] MEDS ORDERED: Heparin 5,000 Unit/mL Inj SUBQ SCH (16:30)
[2017-05-14 18:05] LABS: Magnesium 1.6 mg/dL (1.6-2.6)
--- NOTE | 2017-05-14 18:36 | PCM.PNMED ---
Subjective Date of Service May 14, 2017 Subjective Patient is seen and examined. She is feeling much better she is already taking liquids. She was taken to the OR very early this morning and she was seen later in the day, seems to be tolerating clear liquids okay. Still has a urine catheter, clear urine is seen. Potassium is stable. PAin is well controlled Exam Vital Signs Vital Sign - Last Date Time Temp Pulse Resp B/P Pulse Ox O2 Delivery O2 Flow Rate FiO2 05/14/17 14:09 36.4 64 19 158/77 97 Room Air 05/14/17 12:25 8 Intake and Output 05/13/17 05/13/17 05/14/17 Cumulative From/Thru 15:00 23:00 07:00 05/10/17 17:26 - 05/14/17 05:41 Intake Total 250 ml 2152 ml 1083 ml 8265 ml Output Total 500 ml 900 ml Balance 250 ml 1652 ml 1083 ml 7365 ml Intake Oral 250 ml 1100 ml 1775 ml IV Total 1052 ml 1083 ml 6490 ml Output Urine Total 500 ml 900 ml # Voids 1 1 # Bowel Movements 1 1 Exam General: NAD, sitting up in bed talking to family HEENT: NCAT Heart: RRR, no s3/s4 Lungs: CTA, no crackles or wheezes Ext: Good ROM AAbd: Non Tender, non distended. 4/5 band aids can beseen from lap surgery PSych: No anxiety Neuro: No focal deficits IVs and Medications Medications Reviewed: Medications were reviewed in detail Lab and Diagnostics Result Diagram: 05/14/17 1250 05/14/17 1715 X-Rays, CTs and MRIs X-RAY CHEST ONE VIEW, PORTABLE ([id number]) IMPRESSION: No acute pulmonary process. Dictated by: Niya Gregorio M.D. on 05/10/2017 at 19:49 Approved by: Niya Gregorio M.D. on 05/10/2017 at 19:50 X-RAY BARIUM SWALLOW ESOPHAGUS ([id number]) IMPRESSION: Abnormal appearance of the distal esophagus with sequela of radiographic findings suggesting achalasia. Endoscopy is recommended. Dictated by: Sina Peters RRA Interpreted: Niya Gregorio MD on 04/29/2017 at 15: 20 Approved by: Niya Gregorio M.D. on 04/29/2017 at 18:52 12-lead ECG Sinus rhythm rate 62 LVH with repolarization No prior EKG for comparison Additional Diagnostics ENDOSCOPY PROCEDURE DATE: 02/18/2017 PREOPERATIVE DIAGNOSIS(ES): 1. Dysphagia. 2. Colorectal cancer screening. POSTOPERATIVE DIAGNOSIS(ES): 1. Normal upper endoscopy. 2. Rectal polyp. 3. Proximal sigmoid colon polyp. 4. Distal sigmoid colon polyp. 5. Transverse colon polyp. 6. Diffuse diverticulosis. OPERATION: 1. Upper endoscopy with biopsy. 2. Colonoscopy into terminal ileum with four cold forceps polypectomies. IMPRESSION: 1. No obvious explanation for dysphagia. 2. Four small colon polyps, histology pending. PLAN: Esophageal manometry and then return to my office for discussion. Vitor Amador MD 02/18/17 2678 <Electronically signed by Vitor Amador MD> 02/20/17 4679 Assessment & Plan Kim Pineda is a 61-year-old woman history of chronic dysphasia recently diagnosed by Dr. Parmar as achalasia who presents with severe epigastric pain and syncopal episode. Syncope secondary to vagal response, present on admission, active. Etiology likely secondary to dehydration and poor oral intake. Although cannot rule out cardiac involvement as EKG showed some left ventricular hypertrophy with no prior EKG to compare to. - Echocardiogram, ultrasound carotids were ordered for the morning.: Carotid scan showed < 50% stenosis --Echo showed "The ejection fraction is estimated to be 60-65%. The right ventricle is normal in size, thickness and function.There is no significant valvular heart disease.'-- essentially normal study - Monitor on telemetry overnight., Normal sinus rhythm, bradycardia this a.m. and 40s. Patient is completely asymptomatic - Chest x-ray, CBC, and troponins negative for abnormalities. --Bradycardia 05/11 a.m. echo is still pending, EKG is ordered: There have been EKG changes, discussed case with cardiology alumni relations officer Dr. La Phillips, who says that 2.5 sec pause is not of concern, it will have to be > 3 sec pause for one to be concerned. -- Pt remains bradycardic, EKG does show improvement with improved K levels -- Cardiology has seen the pt, adjusted IV fluids. They feels syncope was due to vasovagal response -- She has had no syncopal event since coming to the hospital -- We will discontinue telemetry on 05/14, as her rhythm has shown steady progress. She has no tele orders after surgery Asymptomatic bradycardia due to vasovagal response, POA resolved -- Discussed case with Dr. Phillips 05/1998, was touch base with him again prior to discharge and patient -- No overnight sinus pauses but she did have first-degree block sinus bradycardia this a.m. -- EKG ordered, 05/11 had significant repolarization changes, but improved EKG on 05/12 -- Cardiology has seen the pt on 05/12, cleared her for OR, they feel pt is displaying vagal response (vomiting), which is causing her to have bradycardia. -- Stable. She is maintaining heart rate in 60s since her surgery Acute kidney injury, present on admission, resolved Etiology likely secondary to dehydration and poor oral intake. - Elevated BUN and creatinine on admission compared to labs drawn on 02/01/17 that showed a creatinine of 0.68 and BUN of 12. - IV fluids as above. - UA showed some concern for infection, cultures are growing ecoli, no reason to treat asymptomatic bacteriuria in this 61F Hypokalemia, present on admission, resolved - Potassium very slow to adjust - 05/11 She was given a total of 50 meq IV potassium, 20 meq PO oral solution, plus the IVF w/potassium. F/U lab at 10 PM. -- Consulted Dr. Alba on 05/11, as she has been very refractory, who recommends continuing the repletion through the night with both IV, PO, f/u K, Mag in the AM. Agrees with IV fluids. We appreciate the recommendations. -- 05/12 She has corrected to 3.4 05/12 a.m. after receiving 20 meq of oral solution overnight. K flash 10 meq on 05/12., magnesium is normal -- Cardiology also recommended to pt she should stay in the hospital with close monitoring of her lytes prior to her surgery -- Surgery also recommends that patient stays in the hospital until surgery to avoid further alterations in electrolytes/cardiac rythm and to ensure that she could have a surgery as scheduled -- PT has undergone Heller myotomy, Toupet fundoplication and EGD on 05/14 Achalasia Type II, present on admission, active. - Heller myotomy scheduled for 05/[address] Parmar. - Dr. Parmar should be contacted in the morning so she is made aware of the patient's current situation. -- Discussed case with Dr. Parmar, she will see the patient. She is requesting an ultrasound of the abdomen, this has been ordered and showed biliary sludge. She does not plan on cholecystectomy at this point. -- From Dr. Parmar's recommendations it appears that she she currently plans to take patient to the OR and 14th. -- Discussed case with Dr. Parmar, who discussed with Anesth and decided to keep pt until surgery. -- Patient is postop day 0 Laparoscopic extended Heller myotomy with Toupet fundoplication, and Upper endoscopy Elevated liver enzymes, present on admission,improved Unclear etiology and chronicity. Patient denies history of hepatitis, HIV, or IV drug use. May be secondary to achalasia and nine-month history of nausea and vomiting. - As they are only mildly elevated will repeat CMP in the morning after IV fluid hydration. - Ultrasound of abdomen is ordered per Dr. Parmar's request though liver function tests seen to be normal normalizing except for the ALT --No active plans for cholecystectomy per Dr. Parmar PRN Medications - Acetaminophen as needed for mild pain/fever/headache - Bowel regimen as needed - Antiemetic as needed Patient is admitted under observation status with expected length of stay less than 2 midnights due to severity of presenting symptoms, risk of adverse event, and complexity of treatment plan. Pain Evaluation: Adequate Pain Control GI Prophylaxis: Not indicated VTE Prophylaxis: Sub-Q Heparin (Unfractionated), SCDs VTE Mechanical Devices: Intermittant Pneumatic CD Resuscitation Status: CPR: Attempt Resuscitation Time spent 25 minutes Cathy Bailey DO May 14, 2017 18:35
[2017-05-15] VITALS: BP 119/78; PULSE 51; RESP 16; O2SAT 97
[2017-05-15] MEDS: Heparin 5,000 Unit/mL Inj SUBQ SCH (00:26)
[2017-05-15] MEDS: oxyCODONE 1 mg/mL 5 mL Liquid PO SCH ×2 (02:40→05:00)
[2017-05-15] MEDS: Dextrose 5% Lactated Ringer's 1,000 ML IV SCH (02:41)
[2017-05-15 06:36] VITALS: BP 110/72; PULSE 56; RESP 16; O2SAT 97
[2017-05-15 06:58] VITALS: PULSE 66
[2017-05-15 07:03] LABS: Mean Corpuscular Hemoglobin 28.7 pg (27.0-35.0); Mean Corpuscular Volume 88.6 fL (81-100)
--- NOTE | 2017-05-15 07:21 | NUR ---
Narvaez d/c Narvaez d/c'd at 6:15 am this AM. Pt. aware of voiding trial. 10cc of saline taken out of balloon.
[2017-05-15 08:00] VITALS: PULSE 53
--- NOTE | 2017-05-15 10:47 | PROG NOTE ---
[address] [address] PROGRESS NOTE PATIENT: LILLIAN WHALEN : 1955 MR#: [id number] ADMIT: 05/10/2017 JOB ID: [id number] DATE: 05/15/2017 SUBJECTIVE: The patient is seen in followup. She is doing very well. She has been tolerating clear liquids overnight with no dysphagia and no nausea. Her abdominal pain is minimal. She has a slight sore throat but no other complaints. OBJECTIVE: Temperature 36.8, pulse 53, blood pressure 110/72, saturation 97% on room air. In general, she is resting in bed in no acute distress. Chest is clear. Heart: Regular rate and rhythm. No murmurs. Abdomen is soft, nontender, nondistended. Her incisions are clean with no erythema. LABORATORIES: White count is 12.8, hematocrit 32.7, platelets 128, creatinine 0.70, glucose 142. ASSESSMENT AND PLAN: A 61-year-old woman with achalasia, postoperative day one, status post laparoscopic Heller myotomy with toupee fundoplication. She is doing very well clinically. The plan is to get an esophagram today to evaluate the anatomy of the hiatus following her operation. Once that esophagram has been done, I think she can be safely discharged from the hospital. She will go home on a full liquid diet which she will continue until she sees Dr. Parmar back postoperatively.
--- NOTE | 2017-05-15 10:56 | PCM.DISURG ---
Surgical Discharge Instruction Date of Service May 15, 2017 Dates of Hospitalization Date of Hospital Admission May 10, 2017 at 21:30 Providers Admitting Physician: Danii Jade DO Primary Care Physician: Krissy Harding Attending Physician: Octavio Perez MD Discharge Diagnosis Post Operative diagnosis Type II achalasia Diet Discharge Diet: Other (Full liquid diet) Activity Discharge Activity-General: Activity as pain allows, No lifting >15 pounds for 2 weeks, No driving while taking narcotic Dressing and Incisional Care Dressing Care: Allow Steri Stripes to fall off, Remove outer dressing after 24 hrs Hygiene: May shower after (24 hours), DO NOT soak incision under water, NO bathtub, hot tub or whirlpool Additional Instructions Discharge Instructions Continue on a full liquid diet until you see Dr. Parmar. Make sure any medication you take is in liquid form or completely crushed. Please call at any time with questions or concerns. Call to ensure you have a scheduled follow up appointment in 2 weeks. Follow Up Plan Follow Up Plan Follow up with Dr. Parmar in 2 weeks. Call your provider for: Fever, Chills, Increasing abdominal pain, Nausea, Vomiting, Wound redness, Discharge @ incision, pus discharge Jean Carlos Landaverde MD May 15, 2017 10:56
[2017-05-15] MEDS ORDERED: ONDA4TAB12 PO (11:02)
[2017-05-15] MEDS ORDERED: OXYC5SOL11 PO (11:02)
[2017-05-15] MEDS ORDERED: POLY17PO6 PO (11:02)
[2017-05-15] MEDS ORDERED: ACET650S24 PO (11:02)
--- NOTE | 2017-05-15 11:15 | DRSVH ---
PROCEDURE: X-RAY BARIUM SWALLOW ESOPHAGUS ([id number]) INDICATIONS: s/p Heller myotomy COMPARISON: None. FINDINGS: This patient is able to swallow without difficulty. Initially Gastrografin and then barium was given and AP and lateral projections. Primary peristalsis is present but relatively weak. On the current st udy following myotomy of the GE junction there is no passage of contrast into the stomach. Prior to s urgery there is essentially no contrast flowing. The opening now is at least 4 mm in diameter. There is retained contrast in the esophagus however that does not drain unless the patient makes furt her swallows. No evidence for any extravasation outside of the lumen of the GI tract is seen. Swallowed contrast fl ows easily into the lumen of the stomach distally and into the duodenal bulb. IMPRESSION: In this patient postop day #1 for Heller myotomy there is reasonably good drainage withou t extravasation of contrast through the GE junction with the opening by measurement at this time a 4 mm. Complete drainage of the esophagus does not clear in the upright position and further swallows were n eeded to get the barium to empty into the stomach with each ingestion of contrast. Dictated by: Arthur Dorado M.D. on 05/15/2017 at 11:07 Approved by: Arthur Dorado M.D. on 05/15/2017 at 11:12
--- NOTE | 2017-05-15 11:25 | PCM.DIMED ---
Discharge Instructions Date of Service May 15, 2017 Dates of Hospitalization May 10, 2017 at 21:30 Discharge Diagnosis Discharge Diagnosis # Syncope secondary to vagal response, present on admission, active. Etiology likely secondary to dehydration and poor oral intake. # Achalasia Type II, present on admission, active. -s/p Heller myotomy and endoscopy on 05/[address] Parmar. # Asymptomatic bradycardia due to vasovagal response, POA resolved # Acute kidney injury, present on admission, resolved Etiology likely secondary to dehydration and poor oral intake. # Hypokalemia, present on admission, resolved Diet Discharge Diet: Other (liquid diet as advised by surgeon) Patient Instructions Patient Instructions You were hospitalized due to syncope due to dehydration.You had achalasia Type II and underwent successful Heller myotomy and endoscopy on 05/[address] Parmar. Please continue liquid diet as advised by surgeon. Please follow-up with Dr. Parmar in 1-2 weeks. Follow-up plan Follow up with Dr. Parmar in 2 weeks. Follow-up Provider: Krissy Harding Follow-up with PCP in: 1 week Provider: Susan Parmar MD Follow-up in: 2 weeks Octavio Perez MD May 15, 2017 11:25
--- NOTE | 2017-05-15 11:58 | NUR ---
Social Work: Readiness for Discharge/Multi-Disciplinary Rounds D: EMR reviewed. Pt is a 61 y/o female on day 5 of hospitalization admitted for syncope, hypokalemia, and dehydration per H&P. Per MD in rounds, OR cleared pt to go home, no discharge needs, today. Per MD/RN in rounds, pt to receive an upper GI Barium today and pt to discharge pending results. MD did not identify any SW discharge needs. SW has not identified and discharge planning needs. SW provided "Your Discharge Planning Checklist" and encouraged pt to contact SW for any discharge planning questions. Pt likely to discharge home with spouse via POV. SW will continue to follow. A: Pt who is independent at baseline P: MD did not identify any SW discharge needs. SW has not identified and discharge planning needs. SW provided "Your Discharge Planning Checklist" and encouraged pt to contact SW for any discharge planning questions. Pt likely to discharge home with spouse via POV. SW will continue to follow. DANIELLE Wong
--- NOTE | 2017-05-15 12:05 | PCM.DC.MED ---
Discharge Summary Date of Service May 15, 2017 Dates of Hospitalization Date of Hospital Admission May 10, 2017 at 21:30 Date of Discharge: May 15, 2017 Providers: Admitting Physician: Danii Jade DO Primary Care Physician: Krissy Harding Attending Physician: Octavio Perez MD Diagnosis at Time of Discharge Diagnosis at Time of Discharge # Syncope secondary to vagal response, present on admission, active. Etiology likely secondary to dehydration and poor oral intake. # Achalasia Type II, present on admission, active. -s/p Heller myotomy and endoscopy on 05/[address] Parmar. # Asymptomatic bradycardia due to vasovagal response, POA resolved # Acute kidney injury, present on admission, resolved Etiology likely secondary to dehydration and poor oral intake. # Hypokalemia, present on admission, resolved Consultations surgery Dr Parmar Procedures XRay, CTs & MRIs X-RAY CHEST ONE VIEW, PORTABLE ([id number]) IMPRESSION: No acute pulmonary process. Dictated by: Niya Gregorio M.D. on 05/10/2017 at 19:49 Approved by: Niya Gregorio M.D. on 05/10/2017 at 19:50 X-RAY BARIUM SWALLOW ESOPHAGUS ([id number]) IMPRESSION: Abnormal appearance of the distal esophagus with sequela of radiographic findings suggesting achalasia. Endoscopy is recommended. Dictated by: Sina Peters RRA Interpreted: Niya Gregorio MD on 04/29/2017 at 15: 20 Approved by: Niya Gregorio M.D. on 04/29/2017 at 18:52 ECG 12 Lead Sinus rhythm rate 62 LVH with repolarization No prior EKG for comparison Invasive Procedures Date of Service: May 14, 2017 Pre Operative Diagnosis Type II achalasia Post Operative Diagnosis Type II achalasia Procedure: 1. Laparoscopic extended Heller myotomy with [place] fundoplication 2. Upper endoscopy Surgeon and Solar Technician: Surgeon: Susan Parmar M.D. Assistants: Thompson Landaverde MD R3; Moe Lyon PA-C; Darion Foy MS3 Solar Technician was required for dissection and retraction Indication for Procedure This is a 61-year-old woman who presented with dysphagia, regurgitation, and vomiting, and underwent thorough workup including upper GI fluoroscopy which demonstrated a bird's beak abnormality in the distal esophagus; esophageal manometry which was diagnostic for type II achalasia; an upper endoscopy. She experienced significant weight loss, greater than 80 pounds. She was scheduled electively for Heller myotomy, and 3 days before surgery, became dehydrated and was admitted and resuscitated prior to the operation. Findings: 1. The myotomy was extended to 6 cm on the esophagus and 3 cm onto the stomach. 2. 270 posterior fundoplication. 3. A leak test was performed with the endoscope at the completion of the myotomy, and there was no leak. Other Diagnostics ENDOSCOPY PROCEDURE DATE: 02/18/2017 PREOPERATIVE DIAGNOSIS(ES): 1. Dysphagia. 2. Colorectal cancer screening. POSTOPERATIVE DIAGNOSIS(ES): 1. Normal upper endoscopy. 2. Rectal polyp. 3. Proximal sigmoid colon polyp. 4. Distal sigmoid colon polyp. 5. Transverse colon polyp. 6. Diffuse diverticulosis. OPERATION: 1. Upper endoscopy with biopsy. 2. Colonoscopy into terminal ileum with four cold forceps polypectomies. IMPRESSION: 1. No obvious explanation for dysphagia. 2. Four small colon polyps, histology pending. PLAN: Esophageal manometry and then return to my office for discussion. Vitor Amador MD 02/18/17 0849 <Electronically signed by Vitor Amador MD> 02/20/17 6726 Brief History Kim Pineda is a 61-year-old woman history of chronic dysphasia recently diagnosed by Dr. Parmar as achalasia who presents with severe epigastric pain and syncopal episode. The patient has been undergoing workup over the last 3-4 months for chronic nausea and vomiting that began back in July 2016. She weighed 225 pounds prior to developing this chronic nausea and vomiting and now currently weighs 144 pounds. She has undergone workup including EGD with biopsy , barium swallow, and esophageal manometry which all point to type II achalasia. Dr. Parmar plans to take the patient to surgery on 05/14 for laparoscopic Heller myotomy. The patient has been attempting to manage until this procedure takes place. She has been drinking and eating as able but notes that she vomits most of this up. Vomiting as much as 30 times a day. Today the patient states that around 1700 she had an episode of severe epigastric pain that lasted a few minutes. Epigastric pain did not radiate and was described as a sharp intense pain During this episode she subsequently felt lightheaded and began to let her self to the ground when she passed out. Her states that she fell to the ground and not sustain any significant injury to her head. She was unconscious and unresponsive for approximately 40 seconds. When she regained consciousness she was alert and oriented. Her then drove her to the ED to be evaluated. Currently she denies any ongoing epigastric pain or discomfort. She does know she has not had a bowel movement in over a week but has not had significant oral intake. She denies feeling constipated. She denies fever, chills, chest pain, lower extremity edema. She does note some shortness of breath and dizziness that has progressively worsened over the last 2 weeks. She has attributed this to her decreased oral intake due to the achalasia. On presentation to the ED vitals were temperature 36.9, pulse 71, respiratory rate 16, blood pressure 125/81, saturating 100% on room air. Pertinent labs included a potassium of 2.9, BUN and creatinine of 32 and 1.30, AST 52, ALT 66, alkaline phosphatase 43, lipase 45. Hospital Course Kim Pineda is a 61-year-old woman history of chronic dysphasia recently diagnosed by Dr. Parmar as achalasia who presents with severe epigastric pain and syncopal episode. Syncope secondary to vagal response, present on admission, active. Etiology likely secondary to dehydration and poor oral intake. - Carotid scan showed < 50% stenosis --Echo showed "The ejection fraction is estimated to be 60-65%. The right ventricle is normal in size, thickness and function.There is no significant valvular heart disease.'-- essentially normal study - Normal sinus rhythm, bradycardia intermittently. HR in 40s. Patient is completely asymptomatic Achalasia Type II, present on admission, active. - underwent successful Heller myotomy on 05/[address] Parmar. -liquid diet per surgery -postop barium swallow unremarkable Asymptomatic bradycardia due to vasovagal response, POA resolved -- Stable. She is maintaining heart rate in 60s since her surgery Acute kidney injury, present on admission, resolved Etiology likely secondary to dehydration and poor oral intake. Hypokalemia, present on admission, resolved discharged home condition on discharge stable Exam Vital Signs (Last) Date Time Temp Pulse Resp B/P Pulse Ox O2 Delivery O2 Flow Rate FiO2 05/15/17 08:00 53 05/15/17 06:36 36.8 16 110/72 97 Room Air 05/14/17 12:25 8 Exam General: NAD, sitting up in bed talking to family HEENT: NCAT Heart: RRR, no s3/s4 Lungs: CTA, no crackles or wheezes Ext: Good ROM AAbd: Non Tender, non distended. 4/5 band aids can beseen from lap surgery PSych: No anxiety Neuro: No focal deficits Test 05/10/17 18:30 05/10/17 19:38 05/10/17 21:53 05/11/17 05:45 Neutrophils (%) (Auto) 62.0% (40-74) Lymphocytes (%) (Auto) 28.4% (14-46) Monocytes (%) (Auto) 8.8% (4-12) Eosinophils (%) (Auto) 0.5% (0-5) Basophils (%) (Auto) 0.2% (0-3) D-Dimer 0.56mg/L FEU (<0.50) Troponin T < 0.010ug/L (0.0-0.011) Lipase 45U/L (13-60) Lactic Acid Level 1.6mmol/L (0.4-2.0) Urine Color Dark yellow (YELLOW) Urine Appearance Cloudy (CLEAR,HAZY) Urine pH 5.5 (5.0-8.0) Urine Specific [place] 1.025 (1.003-1.035) Urine Protein 30mg/dL (NEG,TRACE) Urine Glucose (UA) Negativemg/dL (NEGATIVE) Urine Ketones 40mg/dL (NEGATIVE) Urine Occult Blood Negative (NEGATIVE) Urine Nitrite Positive (NEGATIVE) Urine Bilirubin Negative (NEGATIVE) Urine Urobilinogen 1.0mg/dL (NORMAL) Urine Leukocyte Esterase Trace (NEGATIVE) Urine RBC 0-2/hpf (0-2) Urine WBC 11-50/hpf (0-5) Urine Epithelial Cells Many/hpf (NONE-MOD) Urine Crystals Oxalic acid crystals (NONE Urine Bacteria Many/hpf (NONE-FEW) Urine Hyaline Casts >20/lpf (NONE) Urine Granular Casts None seen (NONE SEEN) Urine Waxy Casts None seen (NONE SEEN) Urine Red Blood Cell Casts None seen (NONE SEEN) Urine White Blood Cell Casts None seen (NONE SEEN) Urine Mucus Present (None Seen) Urine Trichomonas None seen (NONE SEEN) Urine Yeast None (NONE SEEN) Urinalysis Comment None Urine Culture Reflexed Indicated Thyroid Stimulating Hormone (TSH) 1.340uIU/mL (0.450-4.500) Free Thyroxine 1.25ng/dL (0.82-1.77) Test 05/12/17 06:30 05/13/17 06:32 05/13/17 17:55 05/14/17 17:15 Total Bilirubin 0.8mg/dL (0.0-1.2) Aspartate Amino Transf (AST/SGOT) 37U/L (0-50) Alanine Aminotransferase (ALT/SGPT) 45U/L (0-32) Alkaline Phosphatase 32U/L (25-165) Total Protein 5.3g/dL (6.4-8.4) Albumin 3.2g/dL (3.4-5.0) Phosphorus Level 2.8mg/dL (2.5-4.9) Urine Random Potassium 53.0mEq/L Magnesium Level 1.6mg/dL (1.6-2.6) Test 05/15/17 06:42 White Blood Count 12.8th/mm3 (3.8-10.1) Red Blood Count 3.69mil/mm3 (3.90-5.20) Hemoglobin 10.6g/dL (12.0-15.6) Hematocrit 32.7% (35.0-46.0) Mean Corpuscular Volume 88.6fL (81-100) Mean Corpuscular Hemoglobin 28.7pg (27.0-35.0) Mean Corpuscular Hemoglobin Concent 32.4% (32.0-37.0) Red Cell Distribution Width 14.3% (12.3-15.4) Platelet Count 128bil/L (150-400) Sodium Level 143mEq/L (134-144) Potassium Level 3.8mEq/L (3.5-5.2) Chloride Level 109mEq/L (97-108) Carbon Dioxide Level 21mmol/L (18-29) Blood Urea Nitrogen 10mg/dL (8-27) Creatinine 0.70mg/dL (0.57-1.00) Estimat Glomerular Filtration Rate 121mL/min (>59) Glucose Level 142mg/dL (60-99) Calcium Level 8.7mg/dL (8.5-10.1) Discharge Medications As needed Acetaminophen (Acetaminophen Liquid) 650 Mg/20 Ml Liquid 500 MG PO Q4H PRN PRN For Pain Prescribed by: BETSY LANDAVERDE MD Ondansetron ODT (Ondansetron ODT) 4 Mg Tab.rapdis 4 MG PO Q8H PRN PRN For Nausea Prescribed by: BETSY LANDAVERDE MD Polyethylene Glycol 3350 (Miralax) 17 Gm Powd.pack 17 GM PO BID PRN PRN For Constipation Take as needed to promote smooth and soft bowel movements while using narcotic pain meds. Hold for loose stools. Prescribed by: BETSY LANDAVERDE MD oxyCODONE (oxyCODONE) 5 Mg/5 Ml Solution 5-10 MG PO Q6H PRN PRN For Severe Pain Prescribed by: BETSY LANDAVERDE MD Followup Plan Disposition: home Follow-up plan Follow up with Dr. Parmar in 2 weeks. Discharge Diet: Other (liquid diet as advised by surgeon) Patient Instructions You were hospitalized due to syncope due to dehydration.You had achalasia Type II and underwent successful Heller myotomy and endoscopy on 05/[address] Parmar. Please continue liquid diet as advised by surgeon. Please follow-up with Dr. Parmar in 1-2 weeks. Follow-up Provider: Krissy Harding Follow-up with PCP in: 1 week Provider: Susan Parmar MD Follow-up in: 2 weeks Time spent 35 minutes coordinating discharge and reviewing chart copies to: Krissy Harding; Susan Parmar MD, Melaku MD May 15, 2017 12:05
--- NOTE | 2017-05-15 12:33 | NUR ---
Discharge Pt passed swallow GI test and discharged to home with at 1230; wheeled off unit to vehicle. A&Ox3, CASTRO, IV dc'd intact, No tele, 5x lap sites CDI - bandaids and steristrips in place. Pt tolerating PO - full liquid diet for lunch. Instructed to continue full liquids until seen by Dr Parmar in two weeks. Pt with minimal "sore" pains, tolerable. Hard copy scripts provided to pt along with CareNotes re: new medications. Instructed on s/sx to seek medical attention for - stated understanding. Assessment performed prior to pt discharge. Cardiac/Respiratory/Neuro WNL. GI/ also WNL - chema dc'd at 0630 and pt voiding without issue, pt with BM prior to discharge and tolerating PO. Incisional sites x5 CDI. Addendum: 05/15/17 at 1236 by SAEED WEINBERG RN No unanswered questions/concerns at discharge. All personal belongings in hand at [place].
--- NOTE | 2017-05-17 08:23 | PCM.HPANE ---
Patient Data Surgeon Admitting Provider: Attending Provider:Susan Parmar MD Primary Care Physician:Krissy Harding Other Provider:Malcolm Mclaughlin Anesthesia Reason for Visit Achalasia Ht/WT & BMI Height (Feet): 5 Height (Inches): 5.00 Weight (Kilograms): 66.800 Body Mass Index Allergies Coded Allergies: No Known Allergies (Unverified , 05/10/17) Past Anesthesia History Anesthesia History: Denies:: Abnormal Airway, Anesthesia Reactions (no prior surgery), Difficult Intubation, Fam Anesthesia Reaction, Fam Malignant Hypertherm, Malignant Hyperthermia Diabetes History Hx Diabetes?: No MRSA MRSA: No Medications Hypertension Medication: No Home Meds Incl Beta Mark: No Active Scripts Polyethylene Glycol 3350 (Miralax)17 Gm Powd.pack17 Gm PO BID PRN For Constipation #1 BOTTLE Take as needed to promote smooth and soft bowel movements while using narcotic pain meds. Hold for loose stools. Prov:Jean Carlos Landaverde MD 05/15/17 Ondansetron ODT 4 Mg Tab.rapdis4 Mg PO Q8H PRN For Nausea #20 TABLET Prov:Jean Carlos Landaverde MD 05/15/17 oxyCODONE 5 Mg/5 Ml Solution5-10 Mg PO Q6H PRN For Severe Pain #100 ML Prov:Jean Carlos Landaverde MD 05/15/17 Acetaminophen (Acetaminophen Liquid)650 Mg/20 Ml [id number] Mg PO Q4H PRN For Pain #500 ML Ref 1 Prov:Jean Carlos Landaverde MD 05/15/17 Discontinued Reported Medications Omeprazole 20 Mg Tablet.dr20 Mg PO BID Ref 0 02/17/17 History History of ENT Problems?: Yes HEENT History: Positive for:: Dysphagia (achalasia current admission problem- no difficulty swallowing) Denies:: Abnormal Airway Cataracts Difficult Intubation Hearing Problem Denture Type: None Teeth Condition: Within Normal Limits Hx of Heart Problems?: No Cardiovascular History: Positive for:: Chest Pain (recent inpt ) Denies:: AICD Abdominal Aortic Aneurism Atrial Fibrillation Edema Heart Murmur Hypertension Irregular Heartbeat Pacemaker Rheumatic Fever Hx of Respiratory Problem?: No Respiratory History: Denies:: COPD Emphysema Hemoptysis Oxygen Administration Pneumonia Tuberculosis Use of C-PAP Machine Hx Neurologic Problems?: No Neurological History: Denies:: CVA Dementia Headaches Multiple Sclerosis Parkinson's Disease Seizures Hx of GI Problems?: Yes Hx of Problems?: No Genitourinary History: Denies:: Kidney Stones Urinary Tract Infection Female Hx: Denies:: Currently (post menopausal) Problems with Breasts? Skin History: Denies:: History Skin Disorders? Pressure Ulcers Hx Musculoskeletal Problems?: No Musculoskeletal History: Denies:: Degenerative Joint Joint Replacement Systemic Lupus Hx of Psycho/Social Problems?: No Psycho Social History: Denies:: Anxiety Bipolar Disorder Hx Depression Suicide Attempt Hx Surgeries?: No (none) Hx Any Other Health Problems?: No Other History: Denies:: Cancer Thyroid Disease History Blood Transfusions: Positive for:: Accept Blood Products? Denies:: Blood Transfusions Hx Diabetes: No Hx Alcohol Use: NoHx Substance Use: No Smoking Status: Former Smoker Never Smoker Have You Smoked inLast 12 mo: No Stop/Bang S-Snoring: Do You Snore Loudly: No T-Tired: feel tired, fatigued: No O-Obsered: Observed not breath: No P-Blood Pressure: treated: No B- Body Mass Index > 35 kg/m2: No A- Age over 50: Yes N- Neck Large Circumference: No G- Gender Male: No ALLI Total Score: 0 ALLI Risk Assessment: Low Risk, <3 Yes Risk Assessment Category Category 1A: Patient has history of documented sleep apnea, and HAS NOT received any narcotic, sedative or anesthesia administration during this stay. Category 1B: Patient has history of documented sleep apnea, and HAS received any narcotic , sedative or anesthesia administration during this stay Category 2: Patient has SUSPECTED Obstructive Sleep Apnea, and HAS received any narcotic , sedative or anesthesia administration during this stay. Category 3: Patient has SUSPECTED Obstructive Sleep Apnea and HAS NOT received narcotic, sedative or anesthesia administration during this stay. Category 4: Outpatient in Procedural Areas with known sleep apnea or who screen positive for High Risk via the STOP/BANG questionnaire. Exam Exam General Appearance: Alert, Oriented X3, Cooperative, No Acute Distress HEENT/AIRWAY: MP 2 Lungs: Clear to Auscultation, Normal Air Movement Heart: Exam Unremarkable, Regular Rate/Rhythm, No Murmurs/Rubs/Gallops Plan Impression Patient chart reviewed, patient interviewed and anesthestic plan with risks, benefits, and alternatives discussed, and informed consent obtained. ASA Physical Status: ASA2 Mod Systemic Disease Anesthetic Plan: GA Bene/Risks/Altern/Consents: Yes HP Complete Prior to Induction: Yes Lucas Sim MD May 17, 2017 08:23
--- NOTE | 2017-05-17 08:24 | PCM.ANEP1 ---
Post Anesthesia PACU Phase 1 Assessment Anesthetic Administered: GA Level of Alertness: Sleepy, easy to arouse CASTRO's with Equal Strength: Yes Pain: No Nausea or Vomiting: No CV Function & Hydration Stable: Yes Airway Device: natural Lungs: Clear to Auscultation, Normal Air Movement Dermatome Level: Full Sensation PACU Phase 2 Assessment Complications: No Follow up Care: No Patient Instructions Provided: N/A Lucas Sim MD May 17, 2017 08:23
== END 2017-05-15 12:30 | disposition home or self-care (01) | DRG 327 ==
LOC: SED 17:09 → MPC 21:30 → OBSVTOIN 21:30 → MPC 22:01 → OSC 05-14 13:35
PROVIDERS: ADMIT Internal Medicine; ATTEND Internal Medicine
PROC: 0DV44ZZ Restriction of Esophagogastric Junction, Percutaneous Endoscopic Approach (ICD-10-PCS; 2017-05-14)
PROC: 0DQ44ZZ Repair Esophagogastric Junction, Percutaneous Endoscopic Approach (ICD-10-PCS; 2017-05-14)
PROC: 0D844ZZ Division of Esophagogastric Junction, Percutaneous Endoscopic Approach (ICD-10-PCS; principal; 2017-05-14 07:15)
DX: K22.0 Achalasia of cardia (principal); R64 Cachexia; E87.2 Acidosis; N17.9 Acute kidney failure, unspecified; E87.6 Hypokalemia; R10.13 Epigastric pain; R13.19 Other dysphagia; R11.10 Vomiting, unspecified; E86.0 Dehydration; R00.1 Bradycardia, unspecified; R55 Syncope and collapse; Z86.010 Personal history of colon polyps; Z87.891 Personal history of nicotine dependence; K44.9 Diaphragmatic hernia without obstruction or gangrene; Z68.24 Body mass index [BMI] 24.0-24.9, adult

== ENCOUNTER 2017-05-14 00:23 | Day surgery (SDC) | payer OTHER ==
[2017-05-14] MEDS ORDERED: CeFAZolin 2 Gm/50 mL D5W IV Premix IV ONE (06:00)
[2017-05-14] MEDS ORDERED: Lactated Ringer's 1,000 ML IV ONE (06:00)
[2017-05-14] MEDS ORDERED: fentaNYL-PF 50 mCg/mL 2 mL Inj ONE (13:00)
[2017-05-15] MEDS ORDERED: ACET650S24 PO (11:02)
[2017-05-15] MEDS ORDERED: ONDA4TAB12 PO (11:02)
[2017-05-15] MEDS ORDERED: POLY17PO6 PO (11:02)
[2017-05-15] MEDS ORDERED: OXYC5SOL11 PO (11:02)
== END 2017-05-14 23:59 | disposition home or self-care (01) ==
LOC: SAS 00:23
PROVIDERS: ATTEND Surgery
DX: K22.0 Achalasia of cardia (principal); Z53.8 Procedure and treatment not carried out for other reasons